=== PATIENT | female | born 1940 | race Caucasian/White ===

== ENCOUNTER 2017-08-15 14:00 | Observation (INO) | payer MEDICAID, OTHER ==
[2017-08-15 14:54] LABS: #Lymphocytes 0.7 thou/uL (1.20-3.40); #Monocytes 0.9 thou/uL (0.11-0.59); #Neutrophils 12.9 thou/uL (1.40-6.50); %Basophils 0.2 % (0.0-1.0); %Eosinophils 0.3 % (0.0-10.0); %Monocytes 5.8 % (0.0-10.0); Hematocrit 36.8 % (36.0-47.0); Mean Platelet Volume 8.7 fL (7.4-10.4); Red Blood Cell (RBC) Count 3.87 mill/uL (4.20-5.40); White Blood Cell (WBC) Count 14.6 thou/uL (4.8-10.8)
[2017-08-15 15:10] LABS: Lactic Acid - Sepsis 1.3 mmol/L (0.5-2.2)
[2017-08-15 15:15] LABS: ALT (SGPT) 7 U/L (8-55); AST (SGOT) 20 U/L (5-34); Alkaline Phosphatase 91 U/L (40-150); Anion Gap 16 mmol/L (10-20); BUN (Urea Nitrogen) 49 mg/dL (9.8-20.1); Bilirubin, Total 0.4 mg/dL (0.2-1.2); CK (CPK) 72 U/L (29-168); Calc. Creatinine Clearance 0 mL/min (70-130); Calcium 8.9 mg/dL (7.8-10.44); Carbon Dioxide 22 mmol/L (23-31); Chloride 110 mmol/L (98-107); Estimated GFR-MDRD 26; Globulin 2.9 g/dL (2.4-3.5); Lipase 30 U/L (8-78); Protein, Total 6.5 g/dL (6.0-8.3)
[2017-08-15 15:19] LABS: Troponin I Less than 0.010 ng/mL (< 0.028)
[2017-08-15 15:40] LABS: Bilirubin Small (Negative); Blood, Urine Negative (Negative); Glucose, Urine (Dipstick) Negative (Negative); Ketone, Urine Trace mg/dL (Negative); Nitrite Negative (Negative); Protein, Urine (Dipstick) Trace mg/dL (Neg-Trace)
[2017-08-15 15:43] LABS: Bacteria/HPF 1+ HPF (None Seen); Hyaline Casts/LPF 7-10 HYALINE CAST LPF (0-3 Hyaline); RBC/HPF 0-3 HPF (0-3); Squamous Epithelial None Seen HPF (0-3); WBC/HPF 21-50 HPF (0-3)
[2017-08-15] MEDS ORDERED: metroNIDAZOLE 500 MG/100 ML BAG ONE (15:53)
--- NOTE | 2017-08-15 16:07 | CT ---
ABDOMEN AND PELVIC CT SCAN WITHOUT IV CONTRAST 08/15/17 HISTORY: 77-year-old female with abdominal pain and projectile vomiting as well as diarrhea. Mild linear and parenchymal changes in the lung bases. The patient is rotated considerably. Status post cholecystect jeffery. The pancreas, spleen, adrenal glands, are unremarkable. No renal calculi or acute obstructio n. There is some fluid with a minimally distended right colon as well as sigmoid and rectum. It is d ifficult to evaluate wall thickness of the sigmoid and rectum which could potentially be thick becau se it appears to be filled with fluid. There is minimal ascites in the pelvis. No evidence for bowel obstruction. IMPRESSION: Some nonspecific fluid primarily in the right colon and also in the rectosigmoid region which certai nly could be compatible with patient's history of diarrhea. Some potential rectosigmoid colon wall t hickening cannot be excluded because of the fluid filled rectosigmoid. Minimal ascites in the pelvis . Status post cholecystectomy. No other significant acute process. POS: [facility]
[2017-08-15] MEDS ORDERED: Loperamide HCl 2 MG CAP PO PRN (18:46)
[2017-08-15] MEDS ORDERED: Ondansetron HCl/PF 4 MG/2 ML Vial IVP PRN (18:46)
[2017-08-15] MEDS ORDERED: Ondansetron ODT 4 MG TAB PO PRN (18:46)
[2017-08-15] MEDS ORDERED: Acetaminophen 500 MG TAB PO PRN (18:46)
[2017-08-15 19:49] VITALS: BMI 27.8
[2017-08-15] MEDS: Sodium Chloride 0.9% 1,000 ML IV SCH (19:53)
[2017-08-15] MEDS: Famotidine 20 MG TAB PO SCH (19:55)
[2017-08-15] MEDS ORDERED: metroNIDAZOLE 250 MG in Admixture Fee 2 EACH IVPB SCH (20:00)
--- NOTE | 2017-08-15 20:05 | HP ---
DATE OF ADMISSION: 08/15/2017 PRIMARY CARE PROVIDER: Antonia Chen D.O. CHIEF COMPLAINT: Nausea, vomiting, diarrhea. HISTORY OF PRESENT ILLNESS: This is a 77-year-old female who presents to [facility] in transfer from [facility] with complaints of nause a, vomiting, and diarrhea which apparently began in the last 24 hours. The patient states she has s everal members at [facility] who have similar symptoms. The patient apparently was noted by [facility] home personnel with a low blood pressure, prompting EMS evaluation. The patient apparently wa s hypotensive, placed on intravenous fluids and given 1 liter bolus en route to the emergency room. By the time patient was evaluated in the emergency room, blood pressure had stabilized with initial readings in the 113/68 level. The patient was initially evaluated with CT imaging of the abdomen a nd pelvis showing mild colonic wall thickening in the rectosigmoid region and treated with IV ciprof loxacin and Flagyl. The patient states she has symptomatically improved with the above treatments. The patient denied any recent travel history, documented fever, melena or hematochezia. The patien t denied any recent trauma or surgical intervention. The patient denied any specific dysuria or hem aturia. PAST MEDICAL HISTORY: 1. Chronic urinary tract infections. 2. Parkinson's disease. 3. History of prior expressive aphasia, resolved. 4. Generalized muscle weakness. 5. Question of mild dementia. 6. Hypertension. PAST SURGICAL HISTORY: Reviewed and negative. CURRENT MEDICATIONS: 1. Aspirin 81 mg 1 tab p.o. daily. 2. Carbidopa/levodopa 25/100 mg 1 tab p.o. b.i.d. 3. Fluticasone 50 mcg 1 spray in each naris daily. 4. Lisinopril 20 mg 1 tab p.o. daily. 5. Loratadine 10 mg one tab p.o. daily. 6. Sertraline 25 mg p.o. at bedtime. ALLERGIES: IODINE and PENICILLIN. FAMILY HISTORY: Positive for hypertension. SOCIAL HISTORY: The patient resides at [facility] approximately two y ears. No current alcohol, tobacco or illicit drug use. Ambulates with the use of a rolling walker with standby/contact guard assist. REVIEW OF SYSTEMS: The following complete review of systems was negative, unless otherwise mentione d in the HPI or below: Constitutional: Weight loss or gain, ability to conduct usual activities. Skin: Rash, itching. E yes: Double vision, pain. ENT/Mouth: Nose bleeding, neck stiffness, pain, tenderness. Cardiovasc ular: Palpitations, dyspnea on exertion, orthopnea. Respiratory: Shortness of breath, wheezing, c ough, hemoptysis, fever or night sweats. Gastrointestinal: Poor appetite, abdominal pain, heartbur n, nausea, vomiting, constipation, or diarrhea. Genitourinary: Urgency, frequency, dysuria, noctur ia. Musculoskeletal: Pain, swelling. Neurologic/Psychiatric: Anxiety, depression. Allergy/Immun ologic: Skin rash, bleeding tendency. PHYSICAL EXAMINATION: VITAL SIGNS: Currently, blood pressure 113/68, pulse 73, respiratory rate 14, temperature 98.1 degr ees Fahrenheit, O2 saturation 95% on room air. GENERAL APPEARANCE: This is a 77-year-old female, alert and oriented x3, pleasant, in no acute distress. HEENT: Pupils are equal, round, and reactive to light and accommodation. Extraocular muscles are i ntact. No scleral icterus, no conjunctival injection. Nares patent. OP is clear. Oral mucosa dry appearing. NECK: Supple, no cervical adenopathy, no thyromegaly, no carotid bruits, no JVD appreciated. CHEST: Lungs are clear to auscultation bilaterally. CARDIOVASCULAR: S1, S2, without noted murmur. ABDOMEN: Obese, soft with mild tenderness to palpation in the left upper quadrant. No palpable mas s. No rebound or guarding noted. EXTREMITIES: Warm and dry with fair turgor. Mild edema to the mid shins bilaterally. Pulses palpa ble distally at the dorsalis pedis, posterior tibial, and popliteal arteries bilaterally. Capillary refill less than 2 seconds. NEUROLOGIC: Cranial nerves II-XII are grossly intact. Left upper extremity weakness noted. The pa tient not observed ambulatory during this exam. PERTINENT LABORATORY AND X-RAY FINDINGS: Sodium 143, potassium 4.8, chloride 110, CO2 of 22, BUN 49 , creatinine 1.88 with estimated GFR of 26, glucose 117, lactic acid level 1.3, calcium 8.9, AST 20, ALT of 7, alkaline phosphatase 91. Total CK of 72, troponin I negative x1. Albumin 3.6, lipase 30 . CBC showed a white blood cell count of 14.6, hemoglobin 12, hematocrit 37, platelet count of 136 with 89% neutrophils. Urinalysis showed trace ketones, small bilirubin, moderate leukocyte esterase , 21-50 WBCs per high power field. CT of the abdomen and pelvis dated 08/15/2017 showed nonspecific colonic wall thickening of the rectosigmoid region. EKG dated 08/15/2017 by my interpretation show s sinus mechanism with heart rates in the 70s. Normal R-wave progression noted in the precordial le ads. Normal axis. No acute ST-T wave changes appreciated. ASSESSMENT AND PLAN: 1. Gastroenteritis. Patient will be placed in observation status on the medical floor. We will co ntinue ciprofloxacin 200 mg IV q.12 h. with additional Flagyl 250 mg IV q.8 h. We will check stool s tudies to rule out bacterial infectious process. Continue intravenous normal saline 100 mL per hour . 2. Nausea and vomiting. Suspect secondary to #1. We will continue antiemetics with Zofran 4 mg IV q.6 h. p.r.n. Continue IV antibiotic therapy as outlined previously. Intravenous normal saline at 100 mL per hour. 3. Acute kidney injury on chronic kidney disease stage II. We will continue intravenous fluids as outlined previously. Avoid nephrotoxic agents and contrast media. Repeat creatinine in the a.m. H old lisinopril. 4. Question of hypotension. Continue IV fluids as outlined previously. Hold antihypertensive doreen men. Serial blood pressure monitoring. 5. Leukocytosis with neutrophilia. We will repeat CBC in the a.m. Continue treatment as outlined in #1. 6. Question of urinary tract infection. Await final urine culture results. Continue ciprofloxacin as outlined in #1. 7. Prophylaxis. Sequential compression devices while in bed. Pepcid 20 mg p.o. b.i.d. PT evaluat ion for functional assessment. 8. Code status is FULL. Surrogate medical decision maker is patient's son.
[2017-08-15] MEDS ORDERED: Ciprofloxacin Lactate/D5W 200 MG in Premix Bag 1 BAG IVPB SCH (21:00)
[2017-08-15] MEDS: metroNIDAZOLE 250 MG in Admixture Fee 2 EACH IVPB SCH (23:44)
[2017-08-16] MEDS: Ciprofloxacin Lactate/D5W 200 MG in Premix Bag 1 BAG IVPB SCH ×2 (05:33→17:30)
[2017-08-16 06:25] LABS: Band 2 % (5-11); Hematocrit 27.8 % (36.0-47.0); Mean Platelet Volume 8.5 fL (7.4-10.4); Neutrophil 67 % (42-75); Red Blood Cell (RBC) Count 2.93 mill/uL (4.20-5.40)
[2017-08-16 06:36] LABS: ALT (SGPT) 9 U/L (8-55); AST (SGOT) 17 U/L (5-34); Alkaline Phosphatase 73 U/L (40-150); Anion Gap 13 mmol/L (10-20); BUN (Urea Nitrogen) 42 mg/dL (9.8-20.1); Bilirubin, Total 0.3 mg/dL (0.2-1.2); Calc. Creatinine Clearance 42 mL/min (70-130); Calcium 8.3 mg/dL (7.8-10.44); Carbon Dioxide 21 mmol/L (23-31); Chloride 114 mmol/L (98-107); Estimated GFR-MDRD 36; Globulin 2.4 g/dL (2.4-3.5); Protein, Total 5.4 g/dL (6.0-8.3)
[2017-08-16] MEDS: Sodium Chloride 0.9% 1,000 ML IV SCH ×2 (08:11→15:46)
[2017-08-16] MEDS: metroNIDAZOLE 250 MG in Admixture Fee 2 EACH IVPB SCH ×2 (08:12→15:46)
[2017-08-16] MEDS: Famotidine 20 MG TAB PO SCH ×2 (08:13→21:19)
[2017-08-16] MEDS ORDERED: Carbidopa/Levodopa CR 50-200 mg Tablet PO SCH (09:00)
[2017-08-16] MEDS ORDERED: Bisacodyl 5 MG TAB PO PRN (09:13)
[2017-08-16] MEDS ORDERED: Loperamide HCl 2 MG CAP PO PRN (09:13)
[2017-08-16] MEDS ORDERED: Fluticasone Propionate Nasal Spray 16 gm Bottle NASAL PRN (09:13)
--- NOTE | 2017-08-16 12:44 | PDOC.PN ---
- Subjective Encounter Start Date: 08/16/17 Encounter Start Time: 08:30 -: old records requested/rev Patient seen and examined. No new complaints. No overnight events, pt is feeling better, no diarrhoea - Objective Resuscitation Status: Resuscitation Status FULL:Full Resuscitation MAR Reviewed: Yes Vital Signs & Weight: Vital Signs (12 hours) Temp Pulse Resp BP BP Pulse Ox 08/16/17 12:27 98.1 F 74 18 136/74 97 08/16/17 08:00 97.9 F 72 18 08/16/17 07:53 97.9 F 72 18 134/79 95 08/16/17 04:20 98.1 F 71 16 127/78 94 L Weight Weight 182 lb 9.6 oz I&O: 08/15/17 08/16/17 08/17/17 06:59 06:59 06:59 Intake Total 1630 Balance 1630 Result Diagrams: 08/16/17 05:20 08/16/17 05:20 Phys Exam - Physical Examination Constitutional: NAD HEENT: PERRLA, moist MMs, sclera anicteric Neck: no JVD, supple Respiratory: no wheezing, no rales, no rhonchi Cardiovascular: RRR, no significant murmur, no rub Gastrointestinal: soft, non-tender, no distention, positive bowel sounds Musculoskeletal: no edema, pulses present Neurological: non-focal, normal sensation, moves all 4 limbs Psychiatric: normal affect Skin: no rash, normal turgor Dx/Plan (1) Acute renal failure superimposed on stage 2 chronic kidney disease Code(s): N17.9 - ACUTE KIDNEY FAILURE, UNSPECIFIED; N18.2 - CHRONIC KIDNEY DISEASE, STAGE 2 (MILD) Status: Acute (2) Gastroenteritis Code(s): K52.9 - NONINFECTIVE GASTROENTERITIS AND COLITIS, UNSPECIFIED Status : Acute (3) UTI (urinary tract infection) Status: Acute (4) Anxiety and depression Code(s): F41.8 - OTHER SPECIFIED ANXIETY DISORDERS Status: Chronic (5) Dementia Code(s): F03.90 - UNSPECIFIED DEMENTIA WITHOUT BEHAVIORAL DISTURBANCE Status: Chronic (6) Hypertension Code(s): I10 - ESSENTIAL (PRIMARY) HYPERTENSION Status: Chronic (7) Parkinson disease Code(s): G20 - PARKINSON'S DISEASE Status: Chronic - Plan cont current plan of care, continue antibiotics * continue selected home medication. * renal function improving * continue cipro and flagyl * on discharge oral cipro and flagyl * will plan for discharge tomorrow to SN[facility] * medication reviewed as below * symptomatic treatment Review of Systems - Review of Systems ENT: negative: Ear Pain, Ear Discharge, Nose Pain, Nose Discharge, Nose Congestion, Mouth Pain, Mouth Swelling, Throat Pain, Throat Swelling, Other Respiratory: negative: Cough, Dry, Shortness of Breath, Hemoptysis, SOB with Excertion, Pleuritic Pain, Sputum, Wheezing Cardiovascular: negative: Chest Pain, Palpitations, Orthopnea, Paroxysmal Noc. Dyspnea, Edema, Light Headedness, Other Gastrointestinal: negative: Nausea, Vomiting, Abdominal Pain, Diarrhea, Constipation, Melena, Hematochezia, Other Genitourinary: negative: Dysuria, Frequency, Incontinence, Hematuria, Retention , Other Musculoskeletal: negative: Neck Pain, Shoulder Pain, Arm Pain, Back Pain, Hand Pain, Leg Pain, Foot Pain, Other - Medications/Allergies Allergies/Adverse Reactions: Allergies Allergy/AdvReac Type Severity Reaction Status Date / Time iodine Allergy Verified 08/16/17 01:51 Penicillins Allergy Verified 08/16/17 01:51 Medications: Current Medications Acetaminophen (Tylenol) 1,000 mg PO Q6H PRN PRN Reason: Headache/Fever or Mild Pain Artificial Tears (Tears Naturale) 1 drop EA EYE BID [facility] Aspirin (Ecotrin) 81 mg PO DAILY [facility] Bisacodyl (Dulcolax) 5 mg PO DAILY PRN PRN Reason: Constipation Carbidopa/Levodopa (Sinemet Cr 50/200) 0.5 tab PO BID [facility] Cholecalciferol (Vitamin D3) 1,000 units PO DAILY [facility] Famotidine (Pepcid) 20 mg PO BID [facility] Last Admin: 08/16/17 08:13 Dose: 20 mg Fluticasone Propionate (Flonase Nasal [place]) 0 gm NASAL Q12H PRN PRN Reason: Allergies Gabapentin (Neurontin) 100 mg PO TID [facility] Sodium Chloride (Normal Saline 0.9%) 1,000 mls @ 100 mls/hr IV .Q10H [facility] Last Admin: 08/16/17 08:11 Dose: 1,000 mls Ciprofloxacin/Dextrose 200 mg/ (Device) 100 mls @ 100 mls/hr IVPB 0600,1800 [facility] Last Admin: 08/16/17 05:33 Dose: 100 mls Metronidazole 250 mg/ (Miscellaneous Medication) 50 mls @ 100 mls/hr IVPB 0800, 1600,2359 [facility] Last Admin: 08/16/17 08:12 Dose: 50 mls Loperamide HCl (Imodium) 2 mg PO PRN PRN PRN Reason: Diarrhea/Loose Stools Loperamide HCl (Imodium) 2 mg PO Q4H PRN PRN Reason: Diarrhea/Loose Stools Memantine (Namenda) 10 mg PO BID [facility] Multivitamins (Theragran) 1 tab PO DAILY [facility] Non-Formulary Medication (Rivastigmine [Exelon]) 1 patch TD DAILY [facility] Ondansetron HCl (Zofran Odt) 4 mg PO Q6H PRN PRN Reason: Nausea/Vomiting Ondansetron HCl (Zofran) 4 mg IVP Q6H PRN PRN Reason: Nausea/Vomiting Promethazine HCl (Phenergan) 25 mg PO Q8H PRN PRN Reason: Nausea/Vomiting Psyllium Hydrophilic Mucilloid (Metamucil) 1 pk PO DAILY [facility] Sertraline HCl (Zoloft) 25 mg PO HS DEBORAH
[2017-08-16] MEDS: Gabapentin 100 MG CAP PO SCH ×2 (15:46→21:19)
[2017-08-16] MEDS: Carbidopa/Levodopa CR 50-200 mg Tablet PO SCH (21:00)
[2017-08-16] MEDS: Artificial Tears 18 DROP/0.9 ML EA EYE SCH (21:42)
[2017-08-17] MEDS: metroNIDAZOLE 250 MG in Admixture Fee 2 EACH IVPB SCH ×3 (00:06→10:38)
[2017-08-17] MEDS: Sodium Chloride 0.9% 1,000 ML IV SCH ×3 (02:17→10:21)
[2017-08-17] MEDS: Ciprofloxacin Lactate/D5W 200 MG in Premix Bag 1 BAG IVPB SCH (05:25)
[2017-08-17 07:45] VITALS: TEMP 97.6
[2017-08-17] MEDS: Carbidopa/Levodopa CR 50-200 mg Tablet PO SCH (07:49)
[2017-08-17] MEDS: Famotidine 20 MG TAB PO SCH (07:49)
[2017-08-17] MEDS: Gabapentin 100 MG CAP PO SCH (07:49)
[2017-08-17] MEDS ORDERED: Aspirin 81 mg Enteric Coated Tablet PO SCH (09:00)
[2017-08-17] MEDS ORDERED: RIVASTIGMINE TD SCH (09:00)
[2017-08-17] MEDS ORDERED: Multivit, Therapeutic 1 TAB PO SCH (09:00)
[2017-08-17] MEDS: Artificial Tears 18 DROP/0.9 ML EA EYE SCH (10:20)
--- NOTE | 2017-08-17 11:42 | DIS ---
PRIMARY CARE PHYSICIAN: Dr. Юлия Madrigal DATE OF ADMISSION: 08/15/2017 DATE OF DISCHARGE: 08/17/2017 DISCHARGE DISPOSITION: [facility] home. PRIMARY DISCHARGE DIAGNOSES: 1. Acute on chronic kidney failure, baseline chronic kidney disease stage 2. 2. Gastroenteritis. 3. Urinary tract infection. SECONDARY DISCHARGE DIAGNOSES: Anxiety and depression, dementia, hypertension, Parkinson's disease, physical deconditioning. PRIMARY PROCEDURE/OPERATION: None. RADIOLOGICAL INVESTIGATION: Abdomen and pelvis CT scan showed nonspecific colitis. SIGNIFICANT LABS: WBC 7.0, hemoglobin 8.9, platelets 104, Sodium 144, potassium 4.2, BUN 44, creati nine 1.42, glucose 75, calcium 8.3. LFTs normal. Cardiac enzymes negative. Urinalysis suggestive of UTI. Urine culture grew E. coli. DISCHARGE MEDICATIONS: Tylenol 650 mg q.4 hours p.r.n., aspirin 81 mg p.o. daily, Dulcolax 5 mg p.o . daily, carbidopa/levodopa 25/100 one tablet b.i.d., vitamin D3 1000 units p.o. daily, Cipro 250 m g p.o. b.i.d. for 7 days, Colace 100 mg p.o. daily p.r.n., Flonase nasal spray daily, gabapentin 100 mg p.o. t.i.d., lisinopril 20 mg p.o. daily, Imodium p.r.n., Claritin 10 mg p.o. daily, Mobic 15 mg p.o. daily, Namenda 10 mg p.o. b.i.d., multivitamin 1 tablet p.o. daily, Phenergan 25 mg p.o. q.8h. p.r.n., Metamucil 1 packet daily, Exelon patch every day, Zoloft 25 mg p.o. at bedtime, Flagyl 250 mg p.o. t.i.d. for 7 days. CONTRAINDICATIONS: None. CODE STATUS: FULL CODE. INPATIENT CONSULTANTS: None. ALLERGIES: IODINE, PENICILLIN. DISCHARGE PLAN: Post hospital, the patient will follow up with primary care physician at [facility]. HOSPITAL COURSE: A 77-year-old female with above-mentioned medical problem who was admitted by Dr. Luong. Please see his H\T\P for further details. The patient lives at care home where she was benoit ving nausea, vomiting, diarrhea. She was admitted for gastroenteritis. Her urinalysis was also con sistent with urinary tract infection. In the emergency room, this patient was hypotensive. The pat ient was given IV fluid and her blood pressure improved. The patient was treated for acute on chron ic kidney failure with IV fluid and her renal function improved to baseline. The patient had a urin e culture done on an outpatient basis and based on culture result as well as given history of gastro enteritis at this time, we changed to oral Cipro and Flagyl for another 7 days. The patient's renal function is improved. The patient is tolerating p.o. well. She does not have a ny symptoms associated with nausea, vomiting or diarrhea. She denies any abdominal pain. The patient will continue above-mentioned medications after discharge. The patient is seen and examined at bedside today. VITAL SIGNS: Currently, temperature 97.6, pulse 68, respiratory rate 16, saturation 97%, blood pres sure 165/82, weight 184 pounds. GENERAL: The patient is currently alert, awake, no acute distress. HEAD: Normocephalic, atraumatic. LUNGS: Clear to auscultation without any rhonchi or rales. CARDIAC: S1, S2 regular without any murmur. ABDOMEN: Soft and benign. EXTREMITIES: No edema. NEUROLOGIC: Nonfocal examination. The patient is medically stable for discharge today.
[2017-08-17 11:46] VITALS: BP 127/77
== END 2017-08-17 12:03 ==
LOC: ERS 14:00 → T4-B 16:07
PROVIDERS: ADMIT Family Medicine; ATTEND Family Medicine
DX: R11.2 Nausea with vomiting, unspecified (principal); I12.9 Hypertensive chronic kidney disease with stage 1 through stage 4 chronic kidney disease, or unspecified chronic kidney disease; N18.2 Chronic kidney disease, stage 2 (mild); N17.9 Acute kidney failure, unspecified; K52.9 Noninfective gastroenteritis and colitis, unspecified; N39.0 Urinary tract infection, site not specified; F41.8 Other specified anxiety disorders; G20 Parkinson's disease; R53.81 Other malaise; D70.9 Neutropenia, unspecified; F03.90 Unspecified dementia, unspecified severity, without behavioral disturbance, psychotic disturbance, mood disturbance, and anxiety; Z79.1 Long term (current) use of non-steroidal anti-inflammatories (NSAID); Z79.51 Long term (current) use of inhaled steroids; Z79.82 Long term (current) use of aspirin; Z79.899 Other long term (current) drug therapy; Z88.0 Allergy status to penicillin; Z91.041 Radiographic dye allergy status
CPT/HCPCS: 36415; 36416; 51701; 74176; 80053; 81003; 81015; 82550; 82553; 83605; 83690; 84484; 85007; 85025; 85027; 86850; 86900; 86901; 93005; 96361; 96365; 96366; 96367; A4353; G0378; J0744

== ENCOUNTER 2018-09-01 09:09 | Inpatient (IN) | payer MEDICARE, OTHER, MEDICAID ==
[2018-09-01 10:04] LABS: Hemoglobin 9.2 g/dL (12.0-16.0); Mean Corpuscular HGB CONC 31.8 g/dL (32.0-36.0); Mean Corpuscular Hemoglobin 29.9 pg (27.0-31.0); Mean Corpuscular Volume 93.9 fL (78.0-98.0); RBC Distribution Width 12.9 % (11.5-14.5); Red Blood Cell (RBC) Count 3.08 mill/uL (4.20-5.40); White Blood Cell (WBC) Count 10.8 thou/uL (4.8-10.8)
[2018-09-01 10:30] LABS: Band 39 % (5-11); Lymphocytes 3 % (21-51); MDiff Complete? YES; Mean Platelet Volume 9.3 fL (7.4-10.4); Metamyelocyte 3 % (0-0); Monocytes 7 % (0-10); Neutrophil 48 % (42-75); PLT Morphology Comment Appears Decreased; Platelet Count 104 thou/uL (130-400); Polychromasia SLIGHT = 2-3 cells (100X) (0-2/hpf)
[2018-09-01 10:31] LABS: ALT (SGPT) 10 U/L (8-55); AST (SGOT) 77 U/L (5-34); Albumin 3.1 g/dL (3.4-4.8); Alkaline Phosphatase 75 U/L (40-150); Anion Gap 16 mmol/L (10-20); BUN (Urea Nitrogen) 84 mg/dL (9.8-20.1); Bilirubin, Total 0.6 mg/dL (0.2-1.2); Calc. Creatinine Clearance 0 mL/min (70-130); Calcium 7.9 mg/dL (7.8-10.44); Carbon Dioxide 16 mmol/L (23-31); Chloride 114 mmol/L (98-107); Estimated GFR-MDRD 10; Globulin 2.4 g/dL (2.4-3.5); Glucose 100 mg/dL (83-110); Lipase 10 U/L (8-78); Potassium 4.9 mmol/L (3.5-5.1); Protein, Total 5.5 g/dL (6.0-8.3); Sodium 141 mmol/L (136-145)
[2018-09-01 10:32] LABS: Bilirubin Moderate (Negative); Blood, Urine Negative (Negative); Clarity CLOUDY (Clear); Glucose, Urine (Dipstick) Negative (Negative); Leukocyte Small (Negative); Nitrite Negative (Negative); Protein, Urine (Dipstick) Trace mg/dL (Neg-Trace)
[2018-09-01 10:34] LABS: Troponin I 0.169 ng/mL (< 0.028)
[2018-09-01 10:35] LABS: Bicarbonate (HCO3v) 17.6 mmol/L (1.0-85.0); Calcium, Ionized 1.19 mmol/L (1.12-1.32); Hemoglobin - Calc 10.7 g/dL (12.0-18.0); Lactate 2.46 mmol/L (0.50-2.20); O2 Tension (PvO2) 28.1 mmHg (35.0-45.0); Potassium 5.1 mmol/L (3.4-4.7); T. Carbon Dioxide 18.8 mmol/L (1.0-85.0); pH (Venous) 7.251 (7.35-7.45); vO2 Saturation-calc 43.7 % (94-98)
--- NOTE | 2018-09-01 10:35 | RAD ---
CHEST 1 VIEW: HISTORY: An 78-year-old female with a history of sepsis. COMPARISON: 04/12/2018. FINDINGS: Monitor leads overlie the chest. Heart size is within normal limits. Mild increased markings bilate rally with some minimal chronic-appearing linear changes. IMPRESSION: Mild increased markings and minimal chronic-appearing linear changes, stable from prior 04/12/2018. No confluent pneumonia, overt edema, or pleural effusion. No evidence for pneumonia. POS: [facility]
[2018-09-01 10:36] LABS: Bacteria/HPF None Seen HPF (None Seen); Hyaline Casts/LPF 7-10 HYALINE CAST LPF (0-3 Hyaline); Pathc Cast-AUWi Flag 1.45 (0-2.49); Squamous Epithelial 0-3 HPF (0-3)
--- NOTE | 2018-09-01 10:41 | CT ---
CT OF HEAD NONCOTNRAST: INDICATION: Altered mental status. FINDINGS: There is mild to moderate global atrophy with compensatory dilatation of the ventricular system. Mil d chronic ischemic disease is present. There is no acute intracranial hemorrhage or mass effect or m idline shift. Chronic lacunar infarction in the left cerebellar hemisphere is present. IMPRESSION: No acute intracranial abnormalities. POS: [facility]
[2018-09-01 10:49] LABS: CKMB 44.9 ng/mL (0-6.6)
[2018-09-01] MEDS ORDERED: Norepinephrine 8 MG/0.9% NS 250 ML ONE (11:11)
--- NOTE | 2018-09-01 11:49 | RAD ---
FRONTRAL VIEW CHEST: Comparison: Earlier same day. Indication: Central line placement evaluation. FINDINGS: The right internal jugular venous catheter is present with tip overlying the right atrium. No evidenc e of a significant post procedure pneumothorax. Lungs are hyperinflated with bilateral interstitial p rominence. Chest is otherwise similar. IMPRESSION: Placement of a right internal jugular venous catheter with tip overlying the right atrium. No signifi cant, post procedure, pneumothorax is seen. POS: [facility]
[2018-09-01] MEDS ORDERED: MEROPENEM 1 GM/50 ML 1 GM in Premix Bag 1 BAG IVPB SCH ×2 (12:00→17:00)
[2018-09-01] MEDS ORDERED: SYSTANE 3.5 GM TUBE EA EYE PRN (12:51)
[2018-09-01] MEDS ORDERED: Norepinephrine 8 MG/0.9% NS 250 ML IVPB PRN (12:51)
[2018-09-01] MEDS ORDERED: CCU Electrolyte Replacement 1 EACH IVPB ONE (12:51)
[2018-09-01] MEDS ORDERED: Acetaminophen 325 MG Suppository PR PRN (12:51)
[2018-09-01 13:15] LABS: Actual Bicarbonate (HCO3a) 16.3 mEq/L (22-28); Base Excess (BEa) -9.1 mEq/L (-2.0 to +3.0); CO2 Tension 33.8 mmHg (35.0-45.0); Calcium, Ionized 1.13 mmol/L (1.12-1.30); Carboxyhemoglobin (COHb) 0.3 gm% (0.0-3.0); Hemoglobin (Hb) 9.9 g/dL (12.0-16.0); O2 Tension (PaO2) 151.9 mmHg (> 60.0); Potassium - ABG Lab 4.78 mmol/L (3.70-5.30)
[2018-09-01 13:16] LABS: Analyzer IN Cardio ER; Puncture Site RRA
[2018-09-01] MEDS ORDERED: Potassium Phosphate 9 MMOL in Sodium Chloride 0.9% 100 ML IVPB PRN (13:41)
[2018-09-01] MEDS ORDERED: Potassium Phosphate 15 MMOL in Sodium Chloride 0.9% 250 ML 250 ML IV PRN (13:41)
[2018-09-01] MEDS ORDERED: Magnesium Oxide 400 MG TAB PO PRN ×2 (13:41)
[2018-09-01] MEDS ORDERED: Potassium Chloride 40 MEQ in Sodium Chloride 0.9% 250 ML 250 ML IVPB PRN (13:41)
[2018-09-01] MEDS ORDERED: Magnesium 2 GM/NS 0.9% 100 ML 2 GM in Premix Bag 1 BAG IVPB PRN (13:41)
[2018-09-01] MEDS ORDERED: Potassium Chloride 40 MEQ in Premix Bag 1 BAG IVPB PRN (13:41)
[2018-09-01] MEDS ORDERED: Potassium Phosphate 12 MMOL in Sodium Chloride 0.9% 250 ML 250 ML IV PRN (13:41)
[2018-09-01] MEDS ORDERED: Potassium Chloride 20 MEQ TAB PO PRN (13:41)
[2018-09-01] MEDS ORDERED: CCU ELECTROLYTE REPLACEMENT PROTOCOL FS PRN (13:41)
[2018-09-01 14:46] LABS: Lactic Acid 1.1 mmol/L (0.5-2.2)
[2018-09-01 15:47] LABS: Troponin I 0.385 ng/mL (< 0.028)
[2018-09-01 16:29] LABS: Hemoglobin 9.2 g/dL (12.0-16.0); Mean Corpuscular HGB CONC 32.8 g/dL (32.0-36.0); Mean Corpuscular Hemoglobin 30.5 pg (27.0-31.0); Mean Platelet Volume 9.6 fL (7.4-10.4); Platelet Count 91 thou/uL (130-400); RBC Distribution Width 12.9 % (11.5-14.5); Red Blood Cell (RBC) Count 3.01 mill/uL (4.20-5.40); White Blood Cell (WBC) Count 12.1 thou/uL (4.8-10.8)
[2018-09-01 16:43] LABS: Band 24 % (5-11); Dohle Bodies SLIGHT; Lymphocytes 2 % (21-51); MDiff Complete? YES; Metamyelocyte 8 % (0-0); Monocytes 2 % (0-10); Neutrophil 63 % (42-75); PLT Morphology Comment Appears Decreased; Polychromasia SLIGHT = 2-3 cells (100X) (0-2/hpf); Reactive Lymphocytes 1 % (0-10); Toxic Granulation SLIGHT; Vacuoles SLIGHT
[2018-09-01 16:44] LABS: Anion Gap 16 mmol/L (10-20); BUN (Urea Nitrogen) 79 mg/dL (9.8-20.1); Calc. Creatinine Clearance 0 mL/min (70-130); Calcium 7.9 mg/dL (7.8-10.44); Carbon Dioxide 17 mmol/L (23-31); Chloride 113 mmol/L (98-107); Estimated GFR-MDRD 10; Glucose 118 mg/dL (83-110); Sodium 141 mmol/L (136-145)
[2018-09-01] MEDS: Dextrose 5% in Water 1,000 ML IV SCH (17:37)
[2018-09-01 18:25] LABS: Lactic Acid 1.1 mmol/L (0.5-2.2)
[2018-09-01 18:41] LABS: Troponin I 0.494 ng/mL (< 0.028)
[2018-09-01] MEDS: Famotidine/PF 20 mg/2ml Vial SLOW IVP SCH (21:32)
[2018-09-01] MEDS: MEROPENEM 1 GM/50 ML 1 GM in Premix Bag 1 BAG IVPB SCH (21:33)
--- NOTE | 2018-09-02 00:31 | HP ---
CHIEF COMPLAINT: Altered mental status. HISTORY OF PRESENT ILLNESS: The patient is a very pleasant 78-year-old female with past medical history of Parkinson's, mild dementia, essential hypertension, depression, and congenital coronary artery anomaly, who presented to the hospital for hypertension and altered mental status. I did call the long-term at [phone], spoke with nurse who takes care of Ms. Meredith, who stated that she has been feeling unwell since yesterday. The patient apparently was very weak yesterday, she has not been eating or drinking very much yesterday and had a very large bowel movement diarrhea per nurse. When the nurse came in this morning, she appeared to be more lethargic and was found to be hypotensive. At this time, EMS was called and the patient was brought into the hospital for further evaluation. The patient currently is very drowsy and unable to answer any questions. The patient's son Harish Meredith, who is at the bedside stated that he was told that she was brought in here for altered mental status. He also stated that she was at about 6 months ago with some questionable MRSA versus Clostridium difficile infection. However, when I spoke with the nurse at her facility, she stated that the patient was checked recently for Clostridium difficile and did not have Clostridium difficile at the hospital nor did she have Clostridium difficile at the long-term facility. PAST MEDICAL HISTORY: All the records are obtained from charts. History of Parkinson's, UTIs, frequent falls, dementia, vitamin D deficiency, essential hypertension, history of constipation, depression, and allergic rhinitis. FAMILY HISTORY: The patient's son said there is no history of heart disease or cancer. SOCIAL HISTORY: She is a nonsmoker, nondrinker per charting. The patient is a DNR per a POA, son, Harish Meredith. The patient currently lives in long-term facility. Her mobility is limited with wheelchair; however, she is able to tolerate activities of daily living. PAST SURGICAL HISTORY: She has had, 1. Cholecystectomy. 2. Electronic stimulator placement. MEDICATIONS: Her medications are as of the following; 1. She is on vitamin D3 1000 units daily. 2. Sertraline 25 mg daily. 3. Namenda 10 mg p.o. b.i.d. 4. Lisinopril 20 mg daily. 5. Gabapentin 100 mg t.i.d. 6. Dulcolax 5 mg daily p.r.n. 7. Aspirin 81 mg daily. ALLERGIES: SHE IS ALLERGIC TO IODINE AND PENICILLIN, UNKNOWN CAUSE FOR THE REACTION TO PENICILLIN. REVIEW OF SYSTEMS: Unable to obtain. PHYSICAL EXAMINATION: VITAL SIGNS: The patient was afebrile at 98.8, she was little tachycardic at 110; her blood pressure was 100/60; she was 95% on 6 L. GENERAL: She is snoring, minimal response on sternal rub. She just flinches, she does not upon her eyes; however, I was told previously that she was talking. CV: S1 and S2 present. No murmurs, rubs, or gallops. She appears to be tachycardic. LUNGS: Mild crackles to bilateral lower bases. ABDOMEN: Bowel sounds are present x2. She did flinch a little bit when I pushed on her abdomen below the belly button. EXTREMITIES: No edema. Pedal pulses present x2. NEUROLOGIC: Neuro check unable to do at this time since the patient is very altered and is very obtunded. SKIN: No cuts, lesions, or bruises noted. LABORATORY DATA: Laboratory results are as of the following; her WBCs are 10.8, hemoglobin of 9.2, hematocrit of 28.9, her platelets are 104. She has bands of 39. Chemistry; sodium of 141, potassium of 4.9, bicarb of 16, BUN of 84, creatinine of 4.35, her baseline is 2. AST is mildly elevated at 77. CK and CK-MB are mildly elevated, CK of 2711. BNP was 418. Urine appears to have moderate bilirubin, small leukocyte esterase, 4 to 6 wbc's. IMAGING STUDIES: Chest x-ray, mild hilar congestion. CT of head, no acute abnormalities. ASSESSMENT AND PLAN: The patient is a very pleasant 78-year-old female, who presents to the hospital with altered mental status. 1. Septic shock. The patient currently has received 2 L of normal saline per the sepsis criteria. She is currently also on Levophed to titrate her MAP, to keep her MAPs greater than 65. The patient clinically appears to be very dehydrated. We will continue some IV hydration. I did speak with Nephrology in regard to patient's elevated creatinine and also rhabdomyolysis and acidosis, who recommended to start the patient on D5 water with 3 amps of bicarb. I did discuss with the son if needed given the fact that her creatinine is elevated with her kidney injury and the need for requiring resuscitation with fluids might cause her to possibly go into renal failure requiring dialysis. The patient's son stated that he would have to discuss this with the family and get back with me on that. However, currently I did discuss with the family, she is a do not resuscitate. We will start the patient on broad-spectrum antibiotics with meropenem. She has had diarrhea. We will also check Clostridium difficile and stool leukocyte. I will hold off on giving her anything for concerns for Clostridium difficile. We will just continue the meropenem for now. May add vancomycin. 2. Rhabdomyolysis. CK level was elevated. We will continue some gentle hydration and continue to monitor. 3. Acute kidney injury on chronic kidney disease. Again, we will continue to monitor her urine output and also Nephrology has been consulted. We will also may be doing a renal ultrasound to make sure there is no obstruction. 4. Dehydration. We will continue gentle hydration and continue to monitor. 5. Elevated troponin, EKG just indicated sinus tachycardia. This could be secondary to demand ischemia. We will continue to monitor. 6. Deep venous thrombosis prophylaxis. We will put the patient on sequential compression devices. ER has notified the critical care attending. I did do an ABG since there was a change in mentation from when I was told she was talking earlier to when I saw her she was very lethargic. Her pH was 7.30, pCO2 of 33.8, and pO2 was 151.9. Job ID: [id number]
[2018-09-02] MEDS: MEROPENEM 1 GM/50 ML 1 GM in Premix Bag 1 BAG IVPB SCH ×2 (04:05→15:21)
[2018-09-02 05:03] LABS: Anion Gap 14 mmol/L (10-20); BUN (Urea Nitrogen) 88 mg/dL (9.8-20.1); Calc. Creatinine Clearance 14 mL/min (70-130); Calcium 8.4 mg/dL (7.8-10.44); Carbon Dioxide 18 mmol/L (23-31); Chloride 113 mmol/L (98-107); Estimated GFR-MDRD 10; Glucose 99 mg/dL (83-110); Potassium 4.7 mmol/L (3.5-5.1); Sodium 140 mmol/L (136-145)
[2018-09-02] MEDS: Dextrose 5% in Water 1,000 ML IV SCH (08:04)
[2018-09-02] MEDS ORDERED: Diphenoxylate HCl/Atropine Tablet PO PRN (08:31)
--- NOTE | 2018-09-02 08:51 | CON ---
DATE OF CONSULTATION: 09/01/2018 HISTORY: Marcia Meredith is an 78-year-old female from the senior care in [place] who sees a Dr. Chen there. She has multiple medical problems. Son is at the bedside along with the nurse who states she had altered mental status today. Blood pressure was systolically 60. She was given Levophed by the EMS, started on IV fluids, and brought to the hospital, in the ER. She has been here for a prolonged period of time since 9 o'clock in the morning. I was in the ER at 4 o'clock seeing the patient, she is to go to the ICU. Apparently, her blood pressures improved with hydration and Levophed. She was answering questions with the son in the room at bedside but clearly unable to get additional history. PAST MEDICAL HISTORY: Dementia, Parkinson's disease, chronic UTI, aphasia, muscle weakness, and unknown GI problems. PAST SURGICAL HISTORY: Previous surgeries included none recently. Her last admission about a year ago was prompted by GI issues. MEDICATIONS: Her chronic medications from home include a long list of medicine: 1. Sertraline 25. 2. Exelon one patch. 3. Namenda 10 mg twice a day. 4. Imodium p.r.n. 5. Neurontin 100 mg three times a day. 6. Flonase. 7. Voltaren 100 three times a day. 8. Cipro 500 mg. ALLERGIES: PENICILLIN AND IODINE. SOCIAL HISTORY: No tobacco. No alcohol. She was in the senior care for 2 years. She feeds herself but is not able to walk for the last 2 years. is the son. PHYSICAL EXAMINATION: VITAL SIGNS: Blood pressure is noted, now is improved, 120/80, on Levophed. Pulse 80. Sats 95% on nasal O2. Respirations 18. EXTREMITIES: 2+ edema. CHEST: Decreased breath sounds without any wheezing. CARDIAC: Normal S1 and S2. No gallops. ABDOMEN: No masses. IMAGING: X-rays shows no acute infiltrates. White count 10,000. H and H 9 and 28. Platelet count is 104 which has been low for a period of time. Blood gas, PO2 of 151, PCO2 of 33, pH on supplemental oxygen. Venous blood gases were obtained. Creatinine is 4.3. BUN is 84. Troponin was markedly elevated at 0.38. CK-MB was 444. BNP was 418. Lactate was 2.6. Urine shows small leucocytosis. CT of brain was unremarkable. IMPRESSION: 1. Hypotension, volume depletion. 2. Dementia. 3. Parkinson's disease. 4. Acute on chronic renal failure, advanced age, bedridden for 4 years. I agree with hydration, pressors. Empiric antibiotics; she was started on meropenem and Levophed in the ER along with vancomycin. We will continue present treatment. We will follow. This is consultation note of 70 minutes of which 50 minutes was direct patient care. Job ID: [id number]
[2018-09-02 09:07] LABS: Troponin I 0.282 ng/mL (< 0.028)
[2018-09-02] MEDS: Sodium Chloride 0.45% 1,000 ML IV SCH ×2 (09:08→20:24)
[2018-09-02 10:03] LABS: CKMB 19.7 ng/mL (0-6.6)
[2018-09-02] MEDS: Carbidopa/Levodopa 25-100 mg Tablet PO SCH ×2 (10:11→20:24)
[2018-09-02] MEDS: Heparin 5,000 UNITS/ML VIAL SC SCH ×2 (10:11→20:24)
--- NOTE | 2018-09-02 10:21 | PRG ---
DATE OF SERVICE: 09/02/2018 SUBJECTIVE: This morning, she is much more alert, responsive. OBJECTIVE: VITAL SIGNS: She is on low-dose levophed with a blood pressure of 107/51, pulse 80, respiratory rate 18, sats 100%. GENERAL: She is awake. She is hungry. She denies any pain or discomfort. Is and Os, 785 in, 448 out. CHEST: Decreased breath sounds. No wheezing. CARDIAC: Normal S1 and S2. No gallops. IMPRESSION: 1. Hypotension, more than likely secondary to volume depletion and dehydration, possibly sepsis, though not the source at this time. 2. Relative adrenal insufficiency. 3. DNR, not to be intubated. PLAN: She is started on cortisone for her relative adrenal insufficiency. IV fluids has been given. Try and wean off levophed. She will be transferred to medical floor once levophed is off. Job ID: [id number]
--- NOTE | 2018-09-02 10:59 | PRG ---
DATE OF SERVICE: 09/02/2018 SUBJECTIVE: The patient was seen in the ICU. The patient is very lethargic, barely responding. OBJECTIVE: GENERAL: This is an elderly white female, very lethargic. VITAL SIGNS: Temperature 98.8, pulse 84, respiratory rate 21, and blood pressure 121/52. HEENT: Atraumatic, normocephalic. Oral mucosa is moist. NECK: Supple. CARDIOVASCULAR: S1, S2 heard. RESPIRATORY: Clear. GASTROINTESTINAL: Abdomen is soft. MUSCULOSKELETAL: edema. DERMATOLOGIC: No skin rash. NEUROLOGIC: Lethargic and somnolent. LABORATORY DATA: Hemoglobin is 9.2. Potassium is 4.7, bicarb is 18, BUN is 88, creatinine is 4.1. ASSESSMENT AND PLAN: 1. Acute kidney injury. Renal function seems to be slightly better. 2. Metabolic acidosis, much better. 3. Hyperkalemia, better. 4. Edema, controlled. 5. , stable. Monitor renal function closely. Avoid nephrotoxins and we will follow. Job ID: [id number]
[2018-09-02] MEDS: Hydrocortisone Sod Succ/PF 100 mg/2 ml Vial IVP SCH ×3 (11:44→23:27)
--- NOTE | 2018-09-02 13:15 | CON ---
DATE OF CONSULTATION: 09/01/2018 TYPE OF CONSULTATION: Nephrology. CONSULTING PHYSICIAN: Dr. Campbell. REASON FOR CONSULTATION: Acute kidney injury. REASON FOR ADMISSION: Altered mental status. HISTORY OF PRESENT ILLNESS: This is an 78-year-old white female with history of dementia, Parkinson's disease, who came to the hospital with altered mentation. The patient is not able to give a history. The patient was at intermediate apparently this morning and it was not able to wake her up, and was sent to the hospital. The patient's son and nephew were at the bedside, and they were not present during this episode and not able to give a good history. The patient as per family started getting confused yesterday. The patient was found to have a creatinine of 3.7. Nephrology was consulted. Potassium was 5.1 and bicarb was 9. PAST MEDICAL HISTORY: Positive for dementia, Parkinson's disease, aphasia, muscle weakness, gastroesophageal reflux disease, asthma, hypertension, vitamin D deficiency. PAST SURGICAL HISTORY: Not available. ALLERGIES: IODINE AND PENICILLIN. HOME MEDICATIONS: 1. Aspirin. 2. Bisacodyl. 3. Carbidopa-levodopa. 4. Docusate. 5. Fluticasone. 6. Lisinopril. 7. Loratadine. 8. Losartan. 9. Vitamin D3. 10. Tylenol. 11. Macrobid. 12. Namenda. 13. Meloxicam. 14. Promethazine. 15. Immodium. 16. Artificial Tears. SOCIAL HISTORY: No smoking, alcohol, or illicit drug abuse. FAMILY HISTORY: No history of any kidney disease. REVIEW OF SYSTEMS: Could not be obtained. PHYSICAL EXAMINATION: GENERAL: This is an elderly female, confused. VITAL SIGNS: Temperature 99.1, pulse 87, respiratory rate , but when I saw her, it was 132/80, on Levophed. HEENT: Atraumatic, normocephalic. NECK: Supple. CARDIOVASCULAR: S1 and S2. Heart rate and rhythm are regular. RESPIRATORY: Clear. GASTROINTESTINAL: The abdomen is distended. MUSCULOSKELETAL: No edema. DERMATOLOGIC: No skin rash. NEUROLOGIC: Not responding. LABORATORY DATA: WBC 10.8, hemoglobin is 9.2, potassium is 5.1. BUN is 84 and creatinine is 3.7. ASSESSMENT AND PLAN: 1. Acute kidney injury on chronic kidney disease, most likely from volume depletion versus sepsis. Continue supportive care. Recommend bicarb drip given the severe metabolic acidosis. 2. Edema, controlled. 3. Hypertension, stable. 4. Anemia, rule out any bleed. 5. Hyperkalemia, mild. 6. Metabolic acidosis. Recommend bicarb drip. 7. Elevated troponin. We will monitor, no acute indication for dialysis. The patient is DNR. I advised the family to have a decision on dialysis if we need to, but no need for dialysis at this point. We will continue close monitoring. Avoid nephrotoxins. Thank you for the consult. Job ID: [id number]
--- NOTE | 2018-09-02 14:41 | PDOC.PN ---
- Subjective Encounter Start Date: 09/02/18 Encounter Start Time: 14:00 Subjective: pt up in bed drowsy but arousable - Objective Resuscitation Status - Order Detail: 09/01/18 13:12 Resuscitation Status Routine Resuscitation Status: DNAR: NO Resuscitation Discussed with: with son kayleen rodríguez Vital Signs & Weight: Vital Signs (12 hours) Temp Pulse Ox 09/02/18 12:00 98.8 F 09/02/18 07:16 100 09/02/18 07:00 98.8 F 09/02/18 04:00 97.9 F Weight Admit Weight 185 lb 6.54 oz Weight 192 lb 10.944 oz Most Recent Monitor Data Heart Rate from ECG 79 NIBP 116/69 NIBP BP-Mean 84 Respiration from ECG 20 SpO2 100 I&O: 09/01/18 09/02/18 09/03/18 06:59 06:59 06:59 Intake Total 785 530 Output Total 448 180 Balance 337 350 Result Diagrams: 09/01/18 14:20 09/02/18 04:12 Additional Labs: Accuchecks 09/02/18 09/01/18 05:55 23:58 POC Glucose 97 102 Phys Exam - Physical Examination Neck: no nodes, no JVD, supple, full ROM Respiratory: no wheezing, no rales, no rhonchi, wheezing present, clear to auscultation bilateral Cardiovascular: RRR, no significant murmur, no rub, gallop, irregular Gastrointestinal: soft, non-tender, no distention, positive bowel sounds Musculoskeletal: no edema, pulses present, edema present drowsy but follows command Dx/Plan (1) Septic shock Code(s): A41.9 - SEPSIS, UNSPECIFIED ORGANISM; R65.21 - SEVERE SEPSIS WITH SEPTIC SHOCK Status: Acute (2) Acute metabolic encephalopathy Code(s): G93.41 - METABOLIC ENCEPHALOPATHY Status: Acute (3) Dehydration Code(s): E86.0 - DEHYDRATION Status: Acute (4) Acute diarrhea Code(s): R19.7 - DIARRHEA, UNSPECIFIED Status: Acute - Plan unclear etiology for her sepsis -: pt is on steroids and off levophed -: cdiff neg, elevated stool wbc, will check stool cx since she has had -: gastroenteritis in the past. will check tsh * . Review of Systems - Review of Systems Respiratory: negative: Cough, Dry, Shortness of Breath, Hemoptysis, SOB with Excertion, Pleuritic Pain, Sputum, Wheezing Cardiovascular: negative: chest pain, palpitations, orthopnea, paroxysmal nocturnal dyspnea, edema, light headedness, other Gastrointestinal: negative: Nausea, Vomiting, Abdominal Pain, Diarrhea, Constipation, Melena, Hematochezia, Other - Medications/Allergies Allergies/Adverse Reactions: Allergies Allergy/AdvReac Type Severity Reaction Status Date / Time iodine Allergy Hives Verified 09/01/18 12:29 Penicillins Allergy Hives Verified 09/01/18 12:29 Medications: Current Medications Acetaminophen (Tylenol) 650 mg NC Q6H PRN PRN Reason: Fever > 101 or Mild Pain Carbidopa/Levodopa (Sinemet 25-100) 1 tab PO BID [facility] Last Admin: 09/02/18 10:11 Dose: 1 tab Diphenoxylate HCl/Atropine (Lomotil) 1 tab PO Q6H PRN PRN Reason: Diarrhea/Loose Stools Famotidine (Pepcid) 20 mg SLOW IVP 2100 [facility] Last Admin: 09/01/18 21:32 Dose: 20 mg Heparin Sodium (Porcine) (Heparin) 5,000 units SC BID [facility] Last Admin: 09/02/18 10:11 Dose: 5,000 units Hydrocortisone Sodium Succinate (Solu-Cortef) 25 mg IVP Q6HR [facility] Last Admin: 09/02/18 11:44 Dose: 25 mg Norepinephrine Bitartrate (Levophed) 250 mls @ 0 mls/hr IVPB PRN PRN; Protocol PRN Reason: To maintain MAP > 65 Sodium Chloride (1/2 Normal Saline) 1,000 mls @ 100 mls/hr IV .Q10H [facility] Last Admin: 09/02/18 09:08 Dose: 1,000 mls Meropenem 1 gm/ Device 50 mls @ 200 mls/hr IVPB 0400,1600 DEBOR[facility] Mineral Oil/White Petrolatum (Lacri-Lube Ointment) 0 gm EA EYE PRN PRN PRN Reason: Dry Eyes
[2018-09-02] MEDS: Famotidine/PF 20 mg/2ml Vial SLOW IVP SCH (20:24)
[2018-09-03] MEDS: MEROPENEM 1 GM/50 ML 1 GM in Premix Bag 1 BAG IVPB SCH (03:28)
[2018-09-03 04:10] LABS: Anion Gap 14 mmol/L (10-20); BUN (Urea Nitrogen) 84 mg/dL (9.8-20.1); Calc. Creatinine Clearance 18 mL/min (70-130); Calcium 8.9 mg/dL (7.8-10.44); Carbon Dioxide 17 mmol/L (23-31); Chloride 112 mmol/L (98-107); Estimated GFR-MDRD 13; Glucose 108 mg/dL (83-110); Potassium 4.3 mmol/L (3.5-5.1); Sodium 139 mmol/L (136-145)
[2018-09-03] MEDS: hydrALAZINE 20 MG/ML VIAL SLOW IVP PRN ×2 (05:22→12:04)
[2018-09-03] MEDS: Hydrocortisone Sod Succ/PF 100 mg/2 ml Vial IVP SCH ×3 (05:23→20:30)
[2018-09-03] MEDS: Sodium Chloride 0.45% 1,000 ML IV SCH ×2 (08:39→14:37)
[2018-09-03] MEDS: Heparin 5,000 UNITS/ML VIAL SC SCH ×2 (08:40→20:28)
[2018-09-03] MEDS: Carbidopa/Levodopa 25-100 mg Tablet PO SCH ×2 (08:40→20:27)
[2018-09-03 09:03] LABS: Band 31 % (5-11); Eosinophils 1 % (0-10); Hemoglobin 9.4 g/dL (12.0-16.0); Lymphocytes 3 % (21-51); MDiff Complete? YES; Mean Corpuscular HGB CONC 33.3 g/dL (32.0-36.0); Mean Corpuscular Hemoglobin 30.4 pg (27.0-31.0); Mean Corpuscular Volume 91.4 fL (78.0-98.0); Mean Platelet Volume 9.4 fL (7.4-10.4); Metamyelocyte 1 % (0-0); Monocytes 2 % (0-10); Neutrophil 62 % (42-75); PLT Morphology Comment Appears Decreased; Platelet Count 88 thou/uL (130-400); RBC Distribution Width 12.5 % (11.5-14.5); Red Blood Cell (RBC) Count 3.09 mill/uL (4.20-5.40); White Blood Cell (WBC) Count 11.5 thou/uL (4.8-10.8)
[2018-09-03] MEDS: cefTRIAXone\\ROCEPHIN 1 GM in Sodium Chloride 0.9% 100 ML IVPB SCH (09:04)
--- NOTE | 2018-09-03 09:55 | PRG ---
DATE OF SERVICE: 09/03/2018 SUBJECTIVE: This morning, she is much more awake, alert, and responsive, no longer hypotensive. OBJECTIVE: VITAL SIGNS: Blood pressure 160/70, saturations 100% in room air, respiratory rate 18, and temperature 98. CHEST: Decreased breath sounds. No wheezing. CARDIAC: Normal S1 and S2. No gallops. ABDOMEN: Soft. No masses. LABORATORY DATA: Urine is growing E. coli, sensitive to the present antibiotics. Creatinine is 3.49. IMPRESSION AND PLAN: Status post hypotension. Encephalopathy much improved. Normal EF. With renal failure, most of it is prerenal. Unfortunately, she had diarrhea. De-escalate the antibiotics. She is going to be transferred out of the MICU. Pulmonary Critical Care will not follow once she leaves the ICU. She has relative adrenal insufficiency. Job ID: [id number]
--- NOTE | 2018-09-03 17:26 | PDOC.PN ---
- Subjective Encounter Start Date: 09/03/18 Encounter Start Time: 11:55 Subjective: pt up in bed awake - Objective Resuscitation Status - Order Detail: 09/01/18 13:12 Resuscitation Status Routine Resuscitation Status: DNAR: NO Resuscitation Discussed with: with son kayleen rodríguez Vital Signs & Weight: Vital Signs (12 hours) Temp Pulse Pulse Pulse BP BP BP 09/03/18 13:35 81 88 117/61 124/59 L 09/03/18 12:04 75 153/102 H 09/03/18 12:00 98.8 F 09/03/18 07:22 09/03/18 07:00 98.7 F Pulse Ox Pulse Ox Pulse Ox 09/03/18 13:35 98 96 09/03/18 12:04 09/03/18 12:00 09/03/18 07:22 100 09/03/18 07:00 Weight Admit Weight 185 lb 6.54 oz Weight 192 lb 10.944 oz Most Recent Monitor Data Heart Rate from ECG 90 NIBP 145/73 NIBP BP-Mean 97 Respiration from ECG 19 SpO2 100 I&O: 09/02/18 09/03/18 09/04/18 06:59 06:59 06:59 Intake Total 785 3130 460 Output Total 448 1760 760 Balance 337 1370 -300 Result Diagrams: 09/03/18 07:59 09/03/18 03:30 Phys Exam - Physical Examination Neck: no nodes, no JVD, supple, full ROM Respiratory: no wheezing, no rales, no rhonchi, wheezing present, clear to auscultation bilateral Cardiovascular: RRR, no significant murmur, no rub, gallop, irregular Gastrointestinal: soft, non-tender, no distention, positive bowel sounds oriented to self only Dx/Plan (1) Septic shock Code(s): A41.9 - SEPSIS, UNSPECIFIED ORGANISM; R65.21 - SEVERE SEPSIS WITH SEPTIC SHOCK Status: Acute (2) Acute metabolic encephalopathy Code(s): G93.41 - METABOLIC ENCEPHALOPATHY Status: Acute (3) Dehydration Code(s): E86.0 - DEHYDRATION Status: Acute (4) Acute diarrhea Code(s): R19.7 - DIARRHEA, UNSPECIFIED Status: Acute - Plan pt still having diarrhea wbc in stool present -: other stool studies negative, abx changed to ceftriaxone -: if her diarrhea continue may consider cipro/flagyl since she has had -: gastroenteritis in the past. Pt's blood pressure stable -: pt now is having more urine output most likely ATN * . Review of Systems - Review of Systems Cardiovascular: negative: chest pain, palpitations, orthopnea, paroxysmal nocturnal dyspnea, edema, light headedness, other Gastrointestinal: negative: Nausea, Vomiting, Abdominal Pain, Diarrhea, Constipation, Melena, Hematochezia, Other - Medications/Allergies Allergies/Adverse Reactions: Allergies Allergy/AdvReac Type Severity Reaction Status Date / Time iodine Allergy Hives Verified 09/01/18 12:29 Penicillins Allergy Hives Verified 09/01/18 12:29 Medications: Current Medications Acetaminophen (Tylenol) 650 mg SC Q6H PRN PRN Reason: Fever > 101 or Mild Pain Carbidopa/Levodopa (Sinemet 25-100) 1 tab PO BID [facility] Last Admin: 09/03/18 08:40 Dose: 1 tab Diphenoxylate HCl/Atropine (Lomotil) 1 tab PO Q6H PRN PRN Reason: Diarrhea/Loose Stools Famotidine (Pepcid) 20 mg SLOW IVP 2100 [facility] Last Admin: 09/02/18 20:24 Dose: 20 mg Heparin Sodium (Porcine) (Heparin) 5,000 units SC BID [facility] Last Admin: 09/03/18 08:40 Dose: 5,000 units Hydralazine HCl (Apresoline) 10 mg SLOW IVP Q4H PRN PRN Reason: SBP > 180 Last Admin: 09/03/18 12:04 Dose: 10 mg Hydrocortisone Sodium Succinate (Solu-Cortef) 25 mg IVP BID [facility] Last Admin: 09/03/18 09:08 Dose: 25 mg Sodium Chloride (1/2 Normal Saline) 1,000 mls @ 100 mls/hr IV .Q10H [facility] Last Admin: 09/03/18 14:37 Dose: 1,000 mls Ceftriaxone Sodium 1 gm/ (Sodium Chloride) 100 mls @ 200 mls/hr IVPB 0900 [facility] Last Admin: 09/03/18 09:04 Dose: 100 mls Mineral Oil/White Petrolatum (Lacri-Lube Ointment) 0 gm EA EYE PRN PRN PRN Reason: Dry Eyes
[2018-09-03] MEDS: Gabapentin 100 MG CAP PO SCH (20:26)
[2018-09-03] MEDS: Famotidine 20 MG TAB PO SCH (20:26)
[2018-09-03] MEDS ORDERED: Famotidine 20 MG TAB PO SCH (21:00)
[2018-09-04] MEDS: Sodium Chloride 0.45% 1,000 ML IV SCH ×5 (00:20→18:20)
[2018-09-04 05:19] LABS: Anion Gap 12 mmol/L (10-20); BUN (Urea Nitrogen) 80 mg/dL (9.8-20.1); Calc. Creatinine Clearance 23 mL/min (70-130); Calcium 8.2 mg/dL (7.8-10.44); Carbon Dioxide 17 mmol/L (23-31); Chloride 114 mmol/L (98-107); Estimated GFR-MDRD 17; Glucose 94 mg/dL (83-110); Potassium 3.7 mmol/L (3.5-5.1); Sodium 139 mmol/L (136-145)
[2018-09-04] MEDS: Heparin 5,000 UNITS/ML VIAL SC SCH ×2 (08:16→21:05)
[2018-09-04] MEDS: Carbidopa/Levodopa 25-100 mg Tablet PO SCH ×4 (08:17→21:10)
[2018-09-04] MEDS: Gabapentin 100 MG CAP PO SCH (08:17)
[2018-09-04] MEDS: cefTRIAXone\\ROCEPHIN 1 GM in Sodium Chloride 0.9% 100 ML IVPB SCH (08:19)
[2018-09-04] MEDS: Hydrocortisone Sod Succ/PF 100 mg/2 ml Vial IVP SCH ×2 (08:20→21:05)
[2018-09-04] MEDS ORDERED: RIVASTIGMINE 13.3 MG/24 HR TD SCH (09:00)
--- NOTE | 2018-09-04 09:31 | PRG ---
DATE OF SERVICE: 09/04/2018 SUBJECTIVE: The patient is seen and examined at the bedside. Apparently, her consciousness significantly decreased overnight and she is quite comatose this morning during my visit. OBJECTIVE: VITAL SIGNS: Blood pressure is 139/67, temperature is 98.2, pulse is 74, respiratory rate is 20, O2 saturation is 95% on room air. GENERAL: She is comatose. She is difficult to arouse. She responds to painful stimuli. She does not follow my commands. LUNGS: Clear. HEART: S1 and S2 normal. No S3. No S4. No any murmur. ABDOMEN: Soft, nondistended. Bowel sounds are present. No organomegaly. EXTREMITIES: No clubbing, cyanosis, or edema. NEUROLOGIC: She is comatose. She moves her 4 extremities when she is subject to painful stimuli. LABORATORY DATA: Sodium of 139, potassium 3.6, chloride 114, CO2 17, BUN 80, creatinine 2.71. The rest of chemistry within normal limits. IMPRESSION: 1. Encephalopathy. This is most likely related to her medications. I am going to stop her gabapentin and we will keep an eye on her. She should be able to wake up later today. 2. Severe sepsis with hypotension. Although the patient is on Rocephin, we will continue that antibiotic. 3. Dehydration, improved. 4. Acute diarrhea with negative stool cultures. We will start her on probiotic and we will continue her Rocephin. 5. Renal insufficiency. Her blood pressure is improved. I am going to decrease the dose on her hydrocortisone. Job ID: [id number]
[2018-09-04] MEDS: Saccharomyces boulardii 250 MG CAP PO SCH (14:32)
[2018-09-04] MEDS: hydrALAZINE 20 MG/ML VIAL SLOW IVP PRN (18:21)
[2018-09-04] MEDS ORDERED: cloNIDine 0.1mg/24 Hour PATCH TD SCH (18:30)
--- NOTE | 2018-09-04 20:20 | EKG ---
Test Reason : Blood Pressure : / mmHG Vent. Rate : 087 BPM Atrial Rate : 087 BPM P-R Int : 156 ms QRS Dur : 076 ms QT Int : 356 ms P-R-T Axes : 015 009 054 degrees QTc Int : 428 ms Normal sinus rhythm Normal ECG Confirmed by DEVON CANO, SANDEEP ([id number]), mapping editor MARTA BUSTAMANTE ([id number]) on 09/04/2018 8:20:04 PM Referred By: Confirmed By:SANDEEP OSORIO MD
--- NOTE | 2018-09-04 20:52 | PRG ---
DATE OF SERVICE: 09/04/2018 SUBJECTIVE: Patient was seen and examined at bedside and overnight events noted. Patient denies any shortness of breath or chest pain or palpitation. No history of nausea or vomiting or diarrhea or fever or chills or cramps. OBJECTIVE: GENERAL: This is an elderly female, in mild distress. VITAL SIGNS: Temperature 98.4. Heart rate 77. Respiratory rate . Blood pressure 160/79. HEENT: Atraumatic, normocephalic. Oral mucosa is moist NECK: Supple. CARDIOVASCULAR: S1, S2 heard. Rate and rhythm regular. RESPIRATORY: Clear to auscultation. GASTROINTESTINAL: Abdomen is soft. MUSCULOSKELETAL: No tenderness. No edema. DERMATOLOGIC: No skin rash. NEUROLOGIC: Alert and awake and oriented X3. No focal neurologic deficits. Moving all the extremities. PSYCHIATRIC: Mood and affect normal. LABORATORY DATA: Potassium 3.7, BUN is 80, and creatinine is 2.7. ASSESSMENT AND PLAN: 1. Acute kidney injury, healing better. 2. Metabolic acidosis, stable. 3. . 4. Edema. 5. Hypertension, stable. 6. Altered mentation, slightly better. Job ID: [id number]
[2018-09-04] MEDS: Famotidine 20 MG TAB PO SCH ×2 (21:04→21:10)
[2018-09-05 05:55] LABS: Anion Gap 13 mmol/L (10-20); BUN (Urea Nitrogen) 73 mg/dL (9.8-20.1); Calc. Creatinine Clearance 29 mL/min (70-130); Calcium 8.3 mg/dL (7.8-10.44); Carbon Dioxide 17 mmol/L (23-31); Chloride 115 mmol/L (98-107); Estimated GFR-MDRD 22; Glucose 96 mg/dL (83-110); Potassium 3.3 mmol/L (3.5-5.1); Sodium 142 mmol/L (136-145)
[2018-09-05] MEDS: cefTRIAXone\\ROCEPHIN 1 GM in Sodium Chloride 0.9% 100 ML IVPB SCH (08:34)
[2018-09-05] MEDS: Hydrocortisone Sod Succ/PF 100 mg/2 ml Vial IVP SCH ×2 (08:34→20:55)
[2018-09-05] MEDS: Heparin 5,000 UNITS/ML VIAL SC SCH ×2 (08:36→20:53)
[2018-09-05] MEDS: Saccharomyces boulardii 250 MG CAP PO SCH (08:42)
[2018-09-05] MEDS: Carbidopa/Levodopa 25-100 mg Tablet PO SCH ×2 (08:43→21:01)
[2018-09-05] MEDS ORDERED: Potassium Chloride 20 MEQ TAB PO SCH (09:45)
[2018-09-05] MEDS ORDERED: Potassium Chloride 10 MEQ in Premix Bag 1 BAG IVPB SCH ×2 (12:00→12:45)
[2018-09-05] MEDS: Sodium Chloride 0.9% 1,000 ML IV SCH (13:10)
[2018-09-05] MEDS: Sodium Chloride 0.45% 1,000 ML IV SCH (13:15)
[2018-09-05] MEDS: Famotidine 20 MG TAB PO SCH (20:54)
[2018-09-06 05:58] LABS: Anion Gap 13 mmol/L (10-20); BUN (Urea Nitrogen) 60 mg/dL (9.8-20.1); Calc. Creatinine Clearance 33 mL/min (70-130); Calcium 8.5 mg/dL (7.8-10.44); Carbon Dioxide 18 mmol/L (23-31); Chloride 119 mmol/L (98-107); Estimated GFR-MDRD 27; Glucose 95 mg/dL (83-110); Potassium 3.5 mmol/L (3.5-5.1); Sodium 146 mmol/L (136-145)
--- NOTE | 2018-09-06 07:48 | PRG ---
DATE OF SERVICE: 09/03/2018 SUBJECTIVE: Patient was seen and examined at bedside and overnight events noted. Patient denies any shortness of breath or chest pain or palpitation. No history of nausea or vomiting or diarrhea or fever or chills or cramps. OBJECTIVE: GENERAL: This is an elderly female, in no acute distress. VITAL SIGNS: Temperature 98.8. Heart rate 89. Respiratory rate . Blood pressure 124/59 HEENT: Atraumatic, normocephalic. Oral mucosa is moist NECK: Supple. CARDIOVASCULAR: S1, S2 heard. Rate and rhythm regular. RESPIRATORY: Clear to auscultation. GASTROINTESTINAL: Abdomen is soft. MUSCULOSKELETAL: No tenderness. No edema. DERMATOLOGIC: No skin rash. NEUROLOGIC: Alert and awake and oriented X3. No focal neurologic deficits. Moving all the extremities. PSYCHIATRIC: Mood and affect normal. LABORATORY DATA: Potassium is 4.3, BUN is 84, and creatinine is 3.4. ASSESSMENT AND PLAN: 1. Acute kidney injury on chronic kidney disease stage 3 with improvement in BUN and creatinine .. 2. Metabolic acidosis. Continue hydrations. 3. Hyperkalemia, better. 4. . 5. Hypertension, stable. We will continue on IV fluids if tolerated. Job ID: [id number]
--- NOTE | 2018-09-06 07:49 | PRG ---
DATE OF SERVICE: 09/05/2018 SUBJECTIVE: Patient was seen and examined at bedside and overnight events noted. Patient denies any shortness of breath or chest pain or palpitation. No history of nausea or vomiting or diarrhea or fever or chills or cramps. OBJECTIVE: GENERAL: This is an elderly female, in no apparent distress. VITAL SIGNS: Temperature 98.6. Heart rate 81. Respiratory rate 16. Blood pressure 179/82. HEENT: Atraumatic, normocephalic. Oral mucosa is moist. NECK: Supple. CARDIOVASCULAR: S1, S2 heard. Rate and rhythm regular. RESPIRATORY: Clear to auscultation. GASTROINTESTINAL: Abdomen is soft. MUSCULOSKELETAL: No tenderness. No edema. DERMATOLOGIC: No skin rash. NEUROLOGIC: Alert and awake and oriented X3. No focal neurologic deficits. Moving all the extremities. PSYCHIATRIC: Mood and affect normal. LABORATORY DATA: Potassium is 3.3, BUN is 73, creatinine is 2.1. ASSESSMENT AND PLAN: 1. Acute kidney injury on chronic kidney disease, stage 3 improvement. Creatinine is much better. 2. Metabolic acidosis, better. 3. Edema, . 4. Hypertension. 5. Altered mentation with dementia. Renal function is getting better. Okay with reducing IV fluids to 50 cc an hour. Continue close monitoring. Job ID: [id number]
--- NOTE | 2018-09-06 07:50 | PRG ---
DATE OF SERVICE: 09/05/2018 SUBJECTIVE: The patient was seen and examined at the bedside. Her son is in the room during my visit. She is more awake this morning. She is able to answer my questions. She still feels kind of sleepy but she does not sleep during my visit like she did yesterday. OBJECTIVE: VITAL SIGNS: Blood pressure is 179/82, pulse is 81, temperature 98.6, respiratory rate is 16, O2 saturation is 95% on room air. HEENT: Head is atraumatic and normocephalic. Eyes are PERRLA. Sclerae are nonicteric. Oral mucosa is moist. NECK: Supple. LUNGS: Clear. HEART: S1, S2 normal. ABDOMEN: Soft and nontender. EXTREMITIES: No clubbing, cyanosis, or edema. NEUROLOGIC: She is able to answer my questions. She is able to move her all four extremities. LABORATORY DATA: Labs showed a sodium of 142, potassium 3.3, chloride 115, CO2 of 17, BUN of 73, creatinine 2.19. Estimated GFR is 22. Glucose is ranging from 99 to 142. IMPRESSION: 1. Encephalopathy, improved. Her gabapentin was stopped yesterday. She is more awake and able to answer my questions. 2. Severe sepsis with hypotension, improved. The patient is continued on Rocephin. She will need to be switched probably tomorrow to oral antibiotic to finish up the course. 3. Dehydration, improved. 4. Renal insufficiency, gradually improving. 5. Acute diarrhea, improved. There is no any growth on her stool cultures. She is on probiotics and we decided to continue Rocephin and later switch it to oral. Most likely, she will need [facility] unit for further management of her deconditioning, and also we are going to give her one dose of KCl 10 mEq today for her hypokalemia, and I will continue her IV fluids at 75 mL per hour, and continue PT and OT. Job ID: [id number]
[2018-09-06] MEDS: cefTRIAXone\\ROCEPHIN 1 GM in Sodium Chloride 0.9% 100 ML IVPB SCH (08:07)
[2018-09-06] MEDS: Carbidopa/Levodopa 25-100 mg Tablet PO SCH ×2 (08:07→20:11)
[2018-09-06] MEDS: Saccharomyces boulardii 250 MG CAP PO SCH (08:07)
[2018-09-06] MEDS: Hydrocortisone Sod Succ/PF 100 mg/2 ml Vial IVP SCH (08:08)
[2018-09-06] MEDS: Heparin 5,000 UNITS/ML VIAL SC SCH ×2 (08:09→20:11)
[2018-09-06] MEDS: Sodium Chloride 0.9% 1,000 ML IV SCH (08:10)
--- NOTE | 2018-09-06 10:17 | PRG ---
DATE OF SERVICE: 09/06/2018 SUBJECTIVE: This morning, awake and responsive. OBJECTIVE: VITAL SIGNS: Saturations are 98% on room air, resp 18 ,pulse 76 blood [id number] 178/77. CHEST: Decreased breath sounds. No wheezing. CARDIAC: Normal S1 and S2. No gallops or masses. LABORATORY DATA: Creatinine 1.8, BUN is 60. Lytes are normal. IMPRESSION: 1. Urinary tract infection. 2. Hypertension secondary to severe dehydration, secondary to severe diarrhea. 3. Dementia. 4. Relative adrenal insufficiency. PLAN: Pulmonary Critical Care will follow at a distance. Blood pressure is resolved, we can probably discontinue the hydrocortisone, antibiotics, switch over to oral medication, she will be transferred back to the [facility]. Job ID: [id number] [facility]
[2018-09-06] MEDS: Sodium Chloride 0.45% 1,000 ML IV SCH (12:06)
--- NOTE | 2018-09-06 12:21 | PRG ---
DATE OF SERVICE: 09/06/2018 SUBJECTIVE: Patient was seen and examined at bedside and overnight events noted. Patient denies any shortness of breath or chest pain or palpitation. No history of nausea or vomiting or diarrhea or fever or chills or cramps. OBJECTIVE: GENERAL: This is an elderly female, in no apparent distress. VITAL SIGNS: Temperature 98.5. Heart rate 80. Respiratory rate 20. Blood pressure 178/77. HEENT: Atraumatic, normocephalic. Oral mucosa is moist NECK: Supple. CARDIOVASCULAR: S1, S2 heard. Rate and rhythm regular. RESPIRATORY: Clear to auscultation. GASTROINTESTINAL: Abdomen is soft. MUSCULOSKELETAL: No tenderness. No edema. DERMATOLOGIC: No skin rash. NEUROLOGIC: Alert and awake and oriented X3. No focal neurologic deficits. Moving all the extremities. PSYCHIATRIC: Mood and affect normal. LABORATORY DATA: Potassium is 3.5, BUN is 68, and creatinine is 1.8. ASSESSMENT AND PLAN: 1. Acute kidney injury on chronic kidney disease, stage 3. Renal function is slightly better. 2. Hyperchloremia and hypernatremia. We will change to half NS. 3. Metabolic acidosis, stable. 4. Edema, controlled. 5. Altered mentation, getting better. I will continue on IV fluids as tolerated. Job ID: [id number]
[2018-09-06 14:03] VITALS: BMI 33.3
--- NOTE | 2018-09-06 16:06 | PDOC.PN ---
- Subjective Encounter Start Date: 09/06/18 Encounter Start Time: 16:04 Ms. Meredith was seen today in follow-up of Sepsis, and acute kidney injury. She is confused and can not communicate her needs. She appears comfortable. - Objective Resuscitation Status - Order Detail: 09/01/18 13:12 Resuscitation Status Routine Resuscitation Status: DNAR: NO Resuscitation Discussed with: with son kayleen meredtih MAR Reviewed: Yes Vital Signs & Weight: Vital Signs (12 hours) Temp Pulse Resp BP Pulse Ox 09/06/18 08:00 98.5 F 80 20 178/77 H 95 Weight Admit Weight 185 lb 6.54 oz Weight 188 lb 8 oz Most Recent Monitor Data Heart Rate from ECG 90 NIBP 127/70 NIBP BP-Mean 89 Respiration from ECG 16 SpO2 100 I&O: 09/05/18 09/06/18 09/07/18 06:59 06:59 06:59 Intake Total 650 Output Total 2650 700 Balance -2650 -50 Result Diagrams: 09/03/18 07:59 09/06/18 04:31 Phys Exam - Physical Examination HEENT: PERRLA Respiratory: no wheezing, no rales, no rhonchi, clear to auscultation bilateral Cardiovascular: RRR, no significant murmur, no rub Gastrointestinal: soft, non-tender, positive bowel sounds Musculoskeletal: edema present non-pitting edema of the lower extremities Dx/Plan (1) Sepsis Code(s): A41.9 - SEPSIS, UNSPECIFIED ORGANISM Status: Acute (2) Acute diarrhea Code(s): R19.7 - DIARRHEA, UNSPECIFIED Status: Acute (3) Acute metabolic encephalopathy Code(s): G93.41 - METABOLIC ENCEPHALOPATHY Status: Resolved (4) Hypertension Code(s): I10 - ESSENTIAL (PRIMARY) HYPERTENSION Status: Chronic (5) Acute kidney injury superimposed on CKD Code(s): N17.9 - ACUTE KIDNEY FAILURE, UNSPECIFIED; N18.9 - CHRONIC KIDNEY DISEASE, UNSPECIFIED Status: Acute - Plan * Patient was admitted with Sepsis and altered mental status, due to UTI , diarrhea, and acute renal failure. She has improved with treatment since admission * Sepsis- resolving- can likely transition Rocephin to an oral antibiotic * Acute Kidney injury- improved * HTN- blood pressure is uncontrolled- can consider re-start of Lisinopril tomorrow- continue PRN medications
[2018-09-06] MEDS: Famotidine 20 MG TAB PO SCH (20:11)
[2018-09-06] MEDS: hydrALAZINE 20 MG/ML VIAL SLOW IVP PRN (20:23)
[2018-09-07] MEDS: Sodium Chloride 0.45% 1,000 ML IV SCH (03:36)
[2018-09-07 04:45] LABS: Anion Gap 15 mmol/L (10-20); BUN (Urea Nitrogen) 44 mg/dL (9.8-20.1); Calc. Creatinine Clearance 43 mL/min (70-130); Calcium 8.3 mg/dL (7.8-10.44); Carbon Dioxide 16 mmol/L (23-31); Chloride 118 mmol/L (98-107); Estimated GFR-MDRD 36; Glucose 80 mg/dL (83-110); Potassium 3.4 mmol/L (3.5-5.1); Sodium 146 mmol/L (136-145)
[2018-09-07] MEDS: cefTRIAXone\\ROCEPHIN 1 GM in Sodium Chloride 0.9% 100 ML IVPB SCH (08:00)
[2018-09-07] MEDS: Saccharomyces boulardii 250 MG CAP PO SCH (08:04)
[2018-09-07] MEDS: Heparin 5,000 UNITS/ML VIAL SC SCH ×2 (08:04→08:13)
[2018-09-07] MEDS: Carbidopa/Levodopa 25-100 mg Tablet PO SCH (08:05)
--- NOTE | 2018-09-07 12:46 | PDOC.PN ---
- Subjective Encounter Start Date: 09/07/18 Encounter Start Time: 12:45 Ms. Meredith was seen today in follow-up of UTI . She is feeling better. She was more awake and alert. - Objective Resuscitation Status - Order Detail: 09/01/18 13:12 Resuscitation Status Routine Resuscitation Status: DNAR: NO Resuscitation Discussed with: with son kayleen meredith MAR Reviewed: Yes Vital Signs & Weight: Vital Signs (12 hours) Temp Pulse Resp BP Pulse Ox 09/07/18 08:00 93 L 09/07/18 07:51 97.6 F 78 20 174/79 H 93 L Weight Admit Weight 185 lb 6.54 oz Weight 190 lb 3 oz Most Recent Monitor Data Heart Rate from ECG 90 NIBP 127/70 NIBP BP-Mean 89 Respiration from ECG 16 SpO2 100 I&O: 09/06/18 09/07/18 09/08/18 06:59 06:59 06:59 Intake Total 650 Output Total 700 1000 Balance -50 -1000 Result Diagrams: 09/03/18 07:59 09/07/18 03:51 Phys Exam - Physical Examination HEENT: PERRLA Respiratory: no wheezing, no rales, no rhonchi, clear to auscultation bilateral Cardiovascular: RRR, no significant murmur, no rub Gastrointestinal: soft, non-tender, no distention, positive bowel sounds Musculoskeletal: no edema Dx/Plan (1) Sepsis Code(s): A41.9 - SEPSIS, UNSPECIFIED ORGANISM Status: Acute (2) Acute diarrhea Code(s): R19.7 - DIARRHEA, UNSPECIFIED Status: Acute (3) Acute metabolic encephalopathy Code(s): G93.41 - METABOLIC ENCEPHALOPATHY Status: Resolved (4) Hypertension Code(s): I10 - ESSENTIAL (PRIMARY) HYPERTENSION Status: Chronic (5) Acute kidney injury superimposed on CKD Code(s): N17.9 - ACUTE KIDNEY FAILURE, UNSPECIFIED; N18.9 - CHRONIC KIDNEY DISEASE, UNSPECIFIED Status: Acute - Plan * sepsis- resolved * She is more awake and alert * Her serum sodium was only slightly elevated * Stable for discharge back to [place].
--- NOTE | 2018-09-07 12:51 | PRG ---
DATE OF SERVICE: 09/07/2018 SUBJECTIVE: An 78-year-old female, being seen for acute kidney injury. The patient denies any nausea, vomiting, or chest pain. OBJECTIVE: GENERAL: The patient is awake and alert. VITAL SIGNS: Pulse 93, breathing 16, blood pressure 164/73. GENERAL APPEARANCE AND MENTAL STATUS: Fair. HEAD/NECK: Normocephalic. Atraumatic. EYES: EOMI. No deformity. EARS: Clear. No ulcers. NOSE: Intact. No lesions. MOUTH: Clear. No discharge. THROAT: Clear. No exudate. LUNGS: Clear. No crackles. CARDIAC: S1, S2. No rub. ABDOMEN: Benign. Bowel sounds positive. GENITALIA/RECTUM: Moncada absent. BACK/EXTREMITIES: Edema 0+. NEUROLOGICAL: Alert and motor intact. SKIN: LYMPHATICS: LABORATORY DATA: Hemoglobin 9.4 ASSESSMENT AND PLAN: 1. Acute kidney injury. 2. Hypertension, stable. 3. Hypernatremia, we will recommend increasing free water, medication appropriate. I would also recommend a renal imaging. Job ID: [id number]
--- NOTE | 2018-09-07 14:12 | ULT ---
RENAL ULTRASOUND: History: Acute on chronic renal failure. Comparison: None. Technique: Utilizing a multihertz transducer, sagittal and transverse imaging of the kidneys was perf ormed. FINDINGS: Bilateral renal cortical thinning. Right kidney measures 4.4 x 5.0 x 9.1 cm. Left kidney measures 4.3 x 4.3 x 10.1 cm. Bilaterally, no hydronephrosis. Urinary bladder is not seen due to Moncada catheterization. IMPRESSION: Bilateral renal cortical thinning. Bilaterally, no hydronephrosis. POS: [place]
[2018-09-07 17:08] VITALS: BP 170/82; TEMP 97.9
--- NOTE | 2018-09-08 14:07 | DIS ---
DATE OF ADMISSION: 09/01/2018 DATE OF DISCHARGE: 09/07/2018 PRIMARY CARE PHYSICIAN: Dr. Antonia Chen. DISCHARGE DISPOSITION: Home. PRIMARY DISCHARGE DIAGNOSES: 1. Metabolic encephalopathy. 2. Urinary tract infection. 3. Acute on chronic kidney injury. 4. Hypertension. 5. Parkinson disease. 6. Dementia. DISCHARGE MEDICATIONS: Include 1. Omnicef 300 mg twice a day. 2. daily. 3. Sertraline 25 mg at bedtime. 4. Exelon patch 13.3 mg q.24. 5. Multivitamin once a day. 6. Namenda 10 mg twice daily. 7. Loratadine 10 mg twice daily. 8. Imodium one capsule q.4. 9. Flonase nasal spray daily. 10. Voltaren 100 mg topical t.i.d. 11. Vitamin D3 1000 units daily. 12. Levodopa/carbidopa 100/25 twice daily. 13. Dulcolax 5 mg daily. 14. Aspirin 81 mg a day. 15. Artificial Tears once daily. 16. Tylenol p.r.n. PROCEDURES DONE DURING ADMISSION: The patient had an echocardiogram and it demonstrated an ejection fraction of 55% to 60%, grade 1/3 diastolic dysfunction and [id number] tricuspid regurgitation. The patient also had a renal ultrasound showing bilateral renal cortical thinning. There is no evidence of any hydronephrosis. CODE STATUS: DNAR. ALLERGIES: ALLERGIES ARE TO IODINE AND PENICILLIN. HOSPITAL COURSE: Ms. Meredith is a pleasant 78-year-old female, who presented to the emergency room with altered mental status. She was found to have a metabolic encephalopathy likely as a result of urinary tract infection and acute kidney injury. She also had a mild rhabdomyolysis. This all resolved with fluids as well as IV antibiotics. Renal ultrasound was done to rule out obstruction. This was negative. She was also seen by Nephrology during her hospital stay. Once she was stabilized, she was able to be transferred back to the nursing facility on 09/07/2018. Job ID: [id number]
== END 2018-09-07 18:27 | DRG 871 ==
LOC: ERS 09:09 → CCU 16:55 → T4-A 09-03 18:25
PROVIDERS: ADMIT Internal Medicine; ATTEND Internal Medicine
PROC: 3E033XZ Introduction of Vasopressor into Peripheral Vein, Percutaneous Approach (ICD-10-PCS; principal; 2018-09-01)
DX: A41.9 Sepsis, unspecified organism (principal); R65.21 Severe sepsis with septic shock; G93.41 Metabolic encephalopathy; Q24.5 Malformation of coronary vessels; M62.82 Rhabdomyolysis; N39.0 Urinary tract infection, site not specified; N17.9 Acute kidney failure, unspecified; E27.40 Unspecified adrenocortical insufficiency; G20 Parkinson's disease; F02.80 Dementia in other diseases classified elsewhere, unspecified severity, without behavioral disturbance, psychotic disturbance, mood disturbance, and anxiety; F32.9 Major depressive disorder, single episode, unspecified; E55.9 Vitamin D deficiency, unspecified; Z66 Do not resuscitate; I12.9 Hypertensive chronic kidney disease with stage 1 through stage 4 chronic kidney disease, or unspecified chronic kidney disease; E86.0 Dehydration; R74.8 Abnormal levels of other serum enzymes; R19.7 Diarrhea, unspecified; Z74.01 Bed confinement status; E87.5 Hyperkalemia; N18.3 Chronic kidney disease, stage 3 (moderate)
CPT/HCPCS: 36415; 36416; 36556; 51702; 70450; 71045; 76770; 80048; 80053; 81003; 81015; 82330; 82533; 82550; 82553; 82803; 82805; 83605; 83630; 83690; 83880; 84439; 84443; 84484; 85025; 87040; 87045; 87046; 87077; 87086; 87186; 87324; 87449; 87804; 87899; 93005; 93306; 96360; 96361; 96365; 96366; 96367; G8978-GP-CM; G8979-GP-CL; J0360; J0696; J1644; J1720; J2185; J3370; J3480; J7050; P9045; S0028

== ENCOUNTER 2020-06-01 13:55 | Inpatient (IN) | payer MEDICARE, OTHER, MEDICAID ==
[2020-06-01] MEDS ORDERED: cefTRIAXone\\ROCEPHIN 2 GM VIAL ONE (14:37)
[2020-06-01] MEDS ORDERED: Vancomycin 1 GM/200 ML BAG ONE (14:38)
[2020-06-01 16:19] LABS: Bilirubin Negative (Negative); Blood, Urine 2+ (Negative); Glucose, Urine (Dipstick) Normal (Negative); Ketone, Urine Negative (Negative); Leukocyte 500 Leu/uL (Negative); Nitrite Negative (Negative); Protein, Urine (Dipstick) 70 mg/dL (Neg-Trace); RBC/HPF Greater than 50 HPF (0-3); Specific Gravity, Urine 1.013 (1.002-1.036); Squamous Epithelial None Seen HPF (0-3); Urobilinogen Normal mg/dL (Less than 2); WBC/HPF Greater than 50 HPF (0-3); pH, Urine 5.5 (5.0-9.0)
[2020-06-01 16:20] LABS: Bacteria/HPF 3+ HPF (None Seen); Clarity Cloudy (Clear)
[2020-06-01] MEDS ORDERED: Ondansetron ODT 4 MG TAB SL PRN (18:52)
[2020-06-01] MEDS ORDERED: Ondansetron PF 4 MG/2 ML Vial IVP PRN (18:52)
[2020-06-01] MEDS ORDERED: Acetaminophen 325 MG TAB PO PRN ×2 (18:52→19:28)
[2020-06-01] MEDS ORDERED: Acetaminophen 650 MG Suppository PR PRN (19:28)
--- NOTE | 2020-06-01 21:33 | PDOC.HHP ---
Hospitalist HPI - History of Present Illness Syncope History of Present Illness: Patient is an 79-year-old woman who was brought in from the intermediate after having a syncopal episode while taking a shower. She was apparently found slumped in a chair and did not hit the groun. She had lost consciousness for about 3 minutes. Patient has no recollection of the events but does remember being brought into the hospital by ambulance. She has a known history of Alzheimer's and Parkinson's. She is typically AO x2 at baseline. She reports walking with the help of a walker. Currently patient reports having pain throughout her entire body. Denies any headaches. She is minimally communicative at baseline therefore difficult to obtain much history from her. Of note last echo was done August 2018 showing an EF of 55 to 60%. Grade 1/3 diastolic dysfunction. Mildly dilated left atrium. Mitral annular calcification present. Mild MR. Aortic valve sclerosis. Moderate to severe tricuspid regurgitation. ED COURSE: EKG done in the emergency department showed normal sinus rhythm with a heart of 72. No ST changes or T wave abnormalities. Urinalysis done was notable for 500 leukocyte, 70 protein, 2+ blood, greater than 50 white blood cells, greater than 50 red blood cells, 3+ bacteria. Patient therefore started on IV antibiotics for UTI (Levaquin). CT of the head was done and showed atrophy and chronic ischemic changes but no acute intracranial finding. Chest x-ray showed no acute findings. PAST MEDICAL HISTORY: Alzheimer's Parkinson's CKD Chronic UTI Ankylosing spondylitis Depression PAST SURGICAL HISTORY: SOCIAL HISTORY: Patient lives in a intermediate. No tobacco use alcohol consumption or illicit drug use. FAMILY HISTORY: Noncontributory. ALLERGIES: Iodine and penicillin CURRENT MEDICATIONS: Aspirin 81 mg p.o. daily Bisacodyl 5 mg p.o. daily as needed Carbidopa/levodopa, 25/100 mg 1 tablet twice daily Vitamin D3 1000 units p.o. daily Multivitamin with minerals p.o. daily Namenda 5 mg p.o. twice daily Exelon transdermal 1 patch daily, strength 13.3 mg Imodium 2 mg p.o. every 4 hours. Artificial tears Vitamin C tablet 500 mg p.o. daily Zoloft 50 mg p.o. daily Acidophilus/pectin p.o. daily Albuterol sulfate nebs every 6 hours as needed Milk of magnesia 30 mL's p.o. every 12 hours. Levothyroxine 25 mcg p.o. daily - Exam General Appearance: NAD, awake alert Eye: PERRL, anicteric sclera ENT: normocephalic atraumatic, no oropharyngeal lesions Neck: supple, no lymphadenopathy Heart: RRR, normal peripheral pulses Respiratory: CTAB, no wheezes, no rales, no ronchi, normal chest expansion Gastrointestinal: soft, non-tender, non-distended, normal bowel sounds, no guarding, no rigidity Hospitalist Results - Labs Lab results: Troponin I 0.023 ng/mL (< 0.028) 06/01/20 14:58 Urine Ketones Negative mg/dL (Negative) 06/01/20 15:30 Urine Blood 2+ (Negative) A 06/01/20 15:30 Urine Nitrite Negative (Negative) 06/01/20 15:30 Ur Leukocyte Esterase 500 [place]/uL (Negative) A 06/01/20 15:30 Urine RBC Greater than 50 HPF (0-3) A 06/01/20 15:30 Urine WBC Greater than 50 HPF (0-3) A 06/01/20 15:30 Ur Squamous Epith Cells None Seen HPF (0-3) 06/01/20 15:30 Urine Bacteria 3+ HPF (None Seen) A 06/01/20 15:30 Hospitalist H&P A/P - Problem (1) Syncope Code(s): R55 - SYNCOPE AND COLLAPSE Status: Acute (2) UTI (urinary tract infection) Status: Acute (3) Acute kidney injury superimposed on CKD Code(s): N17.9 - ACUTE KIDNEY FAILURE, UNSPECIFIED; N18.9 - CHRONIC KIDNEY DISEASE, UNSPECIFIED Status: Acute (4) Anxiety and depression Code(s): F41.8 - OTHER SPECIFIED ANXIETY DISORDERS Status: Chronic (5) Dementia Code(s): F03.90 - UNSPECIFIED DEMENTIA WITHOUT BEHAVIORAL DISTURBANCE Status: Chronic (6) Hypertension Code(s): I10 - ESSENTIAL (PRIMARY) HYPERTENSION Status: Chronic (7) Parkinson disease Code(s): G20 - PARKINSON'S DISEASE Status: Chronic - Plan Plan: Continue IV antibiotics, will give meropenem due to renal function and PCN allergy. No further levaquin. Continue gentle hydration. Await urine cultures. Monitor renal function. Monitor BP. Echo and carotid US ordered. Orthostatic BPs. Resume home medications once verified, as appropriate. PT consulted. UNKNOWN CODE STATUS/MPOA.
[2020-06-01] MEDS: Sodium Chloride 0.9% 1,000 ML IV SCH (22:32)
[2020-06-01] MEDS: hydrALAZINE 20 MG/ML VIAL SLOW IVP PRN (22:43)
[2020-06-01] MEDS ORDERED: Meropenem 500 MG in Sodium Chloride 0.9% 100 ML IVPB SCH (22:45)
[2020-06-01 23:35] VITALS: BMI 25.4
[2020-06-02 04:11] LABS: #Eosinphils 0.1 thou/uL (0.0-0.7); #Lymphocytes 1.2 thou/uL (1.20-3.40); #Monocytes 0.6 thou/uL (0.11-0.59); #Neutrophils 5.1 thou/uL (1.40-6.50); %Basophils 0.6 % (0.0-1.0); %Eosinophils 1.9 % (0.0-10.0); %Lymphocytes 16.9 % (21.0-51.0); %Neutrophils 72.6 % (42.0-75.0); Hemoglobin 9.9 g/dL (12.0-16.0); Mean Corpuscular HGB CONC 32.7 g/dL (32.0-36.0); Mean Corpuscular Hemoglobin 30.2 pg (27.0-31.0); Mean Corpuscular Volume 92.2 fL (78.0-98.0); Mean Platelet Volume 8.6 fL (7.4-10.4); Platelet Count 128 thou/uL (130-400); RBC Distribution Width 12.3 % (11.5-14.5); Red Blood Cell (RBC) Count 3.27 mill/uL (4.20-5.40); White Blood Cell (WBC) Count 7.1 thou/uL (4.8-10.8)
[2020-06-02 04:57] LABS: Anion Gap 15 mmol/L (10-20); BUN (Urea Nitrogen) 35 mg/dL (9.8-20.1); Calc. Creatinine Clearance 32 mL/min (70-130); Calcium 8.8 mg/dL (7.8-10.44); Carbon Dioxide 19 mmol/L (23-31); Chloride 112 mmol/L (98-107); Estimated GFR-MDRD 29; Glucose 89 mg/dL (83-110); Sodium 142 mmol/L (136-145)
[2020-06-02] MEDS: hydrALAZINE 20 MG/ML VIAL SLOW IVP PRN (05:04)
--- NOTE | 2020-06-02 08:35 | ULT ---
BILATERAL CAROTID DUPLEX ULTRASOUND: HISTORY: Syncope TECHNIQUE: Grayscale, color-flow and spectral Doppler ultrasound imaging of the extracranial carotid artery syst ems and vertebral arteries was performed bilaterally. FINDINGS: No large amount of echogenic plaque is seen involving the common carotid or internal carotid arteries . The peak systolic velocity in the right ICA measures 62 cm/s. The peak systolic velocity in the righ t CCA measures 74 cm/s. The peak systolic velocity in the left ICA measures 75 cm/s. The peak systolic velocity in the lef t CCA measures 109 cm/s. The right IC/CC ration is0.83. The left IC/CC ratio is 0.69. Vertebral flow: antegrade, bilaterally. . IMPRESSION: No hemodynamically significant stenosis of either carotid artery
[2020-06-02] MEDS ORDERED: Meropenem 500 MG in Sodium Chloride 0.9% 100 ML IVPB SCH (09:00)
[2020-06-02] MEDS: cefTRIAXone\\ROCEPHIN 1 GM in Sodium Chloride 0.9% 100 ML IVPB SCH (15:56)
[2020-06-02] MEDS: Sodium Chloride 0.9% 1,000 ML IV SCH (15:58)
[2020-06-02 16:04] LABS: SARS-CoV-2 MS2 Positive; SARS-CoV-2 N Gene Negative; SARS-CoV-2 S Gene Negative; SARS-CoV-2 by NAA Not Detected (NotDetected); SARS-CoV-2 orf1ab Negative
[2020-06-02] MEDS ORDERED: Loperamide HCl 2 MG CAP PO PRN (16:10)
[2020-06-02] MEDS ORDERED: Nystatin Powder 15 GM BOT TOP PRN (16:10)
[2020-06-02] MEDS ORDERED: Acetaminophen 500 MG TAB PO PRN (16:10)
[2020-06-02] MEDS ORDERED: Bisacodyl 5 MG TAB PO PRN (16:10)
[2020-06-02] MEDS ORDERED: Diclofenac 1% 100 GM GEL TP PRN (16:10)
[2020-06-02] MEDS ORDERED: Milk Of Magnesia 30 ML UDCUP PO PRN (16:10)
[2020-06-02] MEDS ORDERED: Albuterol Sulfate 2.5 mg/3 ml Neb NEB PRN (16:10)
--- NOTE | 2020-06-02 16:49 | PDOC.HOSPP ---
- Subjective Encounter Date: 06/02/20 Encounter Time: 08:00 Subjective: no overnight events. this morning, feeling well and has no complaints. - Objective Vital Signs & Weight: Vital Signs (12 hours) Temp Pulse Pulse Resp BP BP BP 06/02/20 15:22 99.1 F 96 16 176/81 H 06/02/20 11:42 85 124/58 L 06/02/20 11:13 99.3 F 84 16 142/68 H 06/02/20 07:44 98.5 F 85 12 124/58 L 06/02/20 05:04 67 182/78 H Pulse Ox Pulse Ox 06/02/20 15:22 100 06/02/20 11:42 100 06/02/20 11:13 96 06/02/20 07:44 100 06/02/20 05:04 Weight Admit Weight 167 lb Weight 167 lb I&O: 06/01/20 06/02/20 06/03/20 06:59 06:59 06:59 Intake Total 120 Output Total 300 Balance -180 Result Diagrams: 06/02/20 03:38 06/02/20 03:38 Hospitalist ROS - Review of Systems Constitutional: denies: chills, sweats Respiratory: denies: cough, shortness of breath, pleuritic pain Cardiovascular: denies: chest pain, palpitations, orthopnea Gastrointestinal: denies: nausea, vomiting, abdominal pain, diarrhea Genitourinary: denies: dysuria, frequency, hematuria - Medication Medications: Active Medications Generic Name Dose Route Start Last Admin Trade Name Freq PRN Reason Stop Dose Admin Sodium Chloride 1,000 mls @ 50 mls/hr 06/01/20 19:45 06/02/20 15:58 Normal Saline 0.9% IV 1,000 mls .Q20H DEBORAH Administration Ceftriaxone Sodium 1 gm/ 100 mls @ 200 mls/hr 06/02/20 15:00 06/02/20 15:56 Sodium Chloride IVPB 100 mls 1500 DEBORAH Administration - Exam General Appearance: NAD, awake alert Neck: no JVD Heart: RRR, no murmur, no gallops, no rubs Respiratory: CTAB, no wheezes, no rales, no ronchi Gastrointestinal: soft, non-tender, non-distended, normal bowel sounds Psychiatric - other findings: alert but not oriented (baseline) Hosp A/P - Plan (1) Vasovagal Syncope Code(s): R55 - SYNCOPE AND COLLAPSE Status: Acute reportedly occurred during warm shower avoid trigger orthostatic vital signs (2) UTI (urinary tract infection) Status: Acute used ceftriaxone before; UCx growing E.coli changed on ceftriaxone pending susceptibilities (3) Acute kidney injury superimposed on CKD Code(s): N17.9 - ACUTE KIDNEY FAILURE, UNSPECIFIED; N18.9 - CHRONIC KIDNEY DISEASE, UNSPECIFIED Status: Acute Cr improving (4) Anxiety and depression Code(s): F41.8 - OTHER SPECIFIED ANXIETY DISORDERS Status: Chronic (5) Dementia Code(s): F03.90 - UNSPECIFIED DEMENTIA WITHOUT BEHAVIORAL DISTURBANCE Status: Chronic (6) Hypertension Code(s): I10 - ESSENTIAL (PRIMARY) HYPERTENSION Status: Chronic (7) Parkinson disease Code(s): G20 - PARKINSON'S DISEASE Status: Chronic UNKNOWN CODE STATUS/MPOA ELOS: 1 night
[2020-06-02] MEDS: Carbidopa/Levodopa CR 50-200 mg Tablet PO SCH (21:25)
[2020-06-02] MEDS: traZODone HCl 50 MG TAB PO SCH (21:25)
[2020-06-02] MEDS: Polyvinyl Alcohol 1.4%/Povidone 0.6% Opth Drops EA EYE SCH (23:08)
[2020-06-03 04:08] LABS: Anion Gap 12 mmol/L (10-20); BUN (Urea Nitrogen) 39 mg/dL (9.8-20.1); Calc. Creatinine Clearance 28 mL/min (70-130); Calcium 8.4 mg/dL (7.8-10.44); Carbon Dioxide 20 mmol/L (23-31); Chloride 115 mmol/L (98-107); Estimated GFR-MDRD 26; Glucose 94 mg/dL (83-110); Magnesium 1.6 mg/dL (1.6-2.6); Phosphorus 3.3 mg/dL (2.3-4.7); Potassium 3.8 mmol/L (3.5-5.1); Sodium 143 mmol/L (136-145)
[2020-06-03] MEDS: Aspirin 81 mg Enteric Coated Tablet PO SCH (08:41)
[2020-06-03] MEDS: Levothyroxine Sodium 25 MCG TAB PO SCH (08:41)
[2020-06-03] MEDS: Floranex Packet PO SCH (08:41)
[2020-06-03] MEDS: Multivit, Therapeutic 1 TAB PO SCH (08:42)
[2020-06-03] MEDS: Carbidopa/Levodopa CR 50-200 mg Tablet PO SCH ×2 (08:42→21:16)
[2020-06-03] MEDS: Ascorbic Acid 500 mg Chewable Tablet PO SCH (08:42)
[2020-06-03] MEDS: Cholecalciferol 1,000 UNITS (25 MCG) TAB PO SCH (08:43)
[2020-06-03] MEDS ORDERED: RIVASTIGMINE TD SCH (09:00)
[2020-06-03] MEDS: Polyvinyl Alcohol 1.4%/Povidone 0.6% Opth Drops EA EYE SCH ×2 (11:56→21:16)
[2020-06-03] MEDS: hydrALAZINE 20 MG/ML VIAL SLOW IVP PRN (11:57)
[2020-06-03] MEDS: Rivastigmine 4.6mg/24 Hour PATCH TD SCH (11:57)
[2020-06-03] MEDS ORDERED: Sodium Chloride 0.9% 1,000 ML IV SCH (12:30)
[2020-06-03] MEDS: cefTRIAXone\\ROCEPHIN 1 GM in Sodium Chloride 0.9% 100 ML IVPB SCH (14:59)
[2020-06-03] MEDS: Sodium Chloride 0.9% 1,000 ML IV SCH ×2 (15:01→21:16)
--- NOTE | 2020-06-03 18:56 | PDOC.HOSPP ---
- Subjective Encounter Date: 06/03/20 Encounter Time: 09:00 Subjective: no overnight events. This morning, drowsier but easily arousable. has no complaints. - Objective Vital Signs & Weight: Vital Signs (12 hours) Temp Pulse Resp BP BP BP BP 06/03/20 15:36 98.5 F 76 16 168/73 H 06/03/20 15:02 98.5 F 78 15 164/73 H 168/73 H 06/03/20 12:17 72 139/65 06/03/20 11:50 99.1 F 64 15 187/87 H 06/03/20 08:42 98.5 F 65 14 144/81 H 144/81 H 06/03/20 08:00 98.5 F 65 14 BP Pulse Ox 06/03/20 15:36 171/77 H 96 06/03/20 15:02 171/77 H 97 06/03/20 12:17 06/03/20 11:50 100 06/03/20 08:42 95 06/03/20 08:00 198/83 H 95 Weight Admit Weight 167 lb Weight 169 lb I&O: 06/02/20 06/03/20 06/04/20 06:59 06:59 06:59 Intake Total 120 1460 2080 Output Total 300 450 600 Balance -180 1010 1480 Result Diagrams: 06/02/20 03:38 06/03/20 03:17 Hospitalist ROS - Review of Systems Constitutional: denies: chills, sweats Eyes: denies: vision change Respiratory: denies: cough, shortness of breath, SOB with excertion Gastrointestinal: denies: nausea, vomiting, abdominal pain Neurological: denies: change in speech - Medication Medications: Active Medications Generic Name Dose Route Start Last Admin Trade Name Freq PRN Reason Stop Dose Admin Acidophilus 1 gm 06/03/20 09:00 06/03/20 08:41 Floranex PO 1 gm DAILY DEBORAH Administration Ascorbic Acid 500 mg 06/03/20 09:00 06/03/20 08:42 Vitamin C PO 500 mg DAILY DEBORAH Administration Aspirin 81 mg 06/03/20 09:00 06/03/20 08:41 Ecotrin PO 81 mg DAILY DEBORAH Administration Carbidopa/Levodopa 0.5 tab 06/02/20 21:00 06/03/20 08:42 Sinemet Cr 50/200 PO 0.5 tab BID DEBORAH Administration Cholecalciferol 1,000 units 06/03/20 09:00 06/03/20 08:43 Vitamin D3 PO 1,000 units DAILY DEBORAH Administration Hydralazine HCl 5 mg 06/02/20 16:12 06/03/20 11:57 Apresoline SLOW IVP 5 mg Q4H PRN Administration SBP GREATER THAN 160 Ceftriaxone Sodium 1 gm/ 100 mls @ 200 mls/hr 06/02/20 15:00 06/03/20 14:59 Sodium Chloride IVPB 100 mls 1500 DEBORAH Administration Levothyroxine Sodium 25 mcg 06/03/20 09:00 06/03/20 08:41 Synthroid PO 25 mcg DAILY DEBORAH Administration Memantine 5 mg 06/02/20 21:00 06/03/20 08:41 Namenda PO 5 mg BID DEBORAH Administration Multivitamins 1 tab 06/03/20 09:00 06/03/20 08:42 Theragran PO 1 tab DAILY DEBORAH Administration Polyvinyl Alcohol/Povidone 0 each 06/02/20 21:00 06/03/20 11:56 Refresh Classic Eye Drops EA EYE 1 each BID DEBORAH Administration Rivastigmine 13.8 mg 06/03/20 09:00 06/03/20 11:57 Exelon Patch TD 13.8 mg DAILY DEBORAH Administration Sertraline HCl 50 mg 06/03/20 09:00 06/03/20 08:42 Zoloft PO 50 mg DAILY DEBORAH Administration Trazodone HCl 25 mg 06/02/20 21:00 06/02/20 21:25 Desyrel PO 25 mg HS DEBORAH Administration - Exam General Appearance: NAD General - other findings: drowsy Eye: PERRL Heart: RRR, no murmur, no gallops, no rubs Respiratory: CTAB, no wheezes, no rales, no ronchi Gastrointestinal: soft, non-tender, non-distended, normal bowel sounds Psychiatric: negative: oriented to person, oriented to place, oriented to time Hosp A/P - Plan (1) Vasovagal Syncope orthostatic hypotension Code(s): R55 - SYNCOPE AND COLLAPSE Status: Acute reportedly occurred during warm shower ortho positive ECHO showing no significant valvulopathy NS bolus; recheck ortho avoid situational trigger (2) UTI (urinary tract infection) Status: Acute used ceftriaxone before; UCx growing E.coli nearly pansusceptible continue ceftriaxone for total of 5 days (3) Acute kidney injury superimposed on CKD Code(s): N17.9 - ACUTE KIDNEY FAILURE, UNSPECIFIED; N18.9 - CHRONIC KIDNEY DISEASE, UNSPECIFIED Status: Acute MELISSA worsening; gave bolus, increased maintenance IVF (4) Anxiety and depression Code(s): F41.8 - OTHER SPECIFIED ANXIETY DISORDERS Status: Chronic (5) Dementia Code(s): F03.90 - UNSPECIFIED DEMENTIA WITHOUT BEHAVIORAL DISTURBANCE Status: Chronic (6) Hypertension Code(s): I10 - ESSENTIAL (PRIMARY) HYPERTENSION Status: Chronic continue to monitor; need to balance HTN and orthostatic hypotension (7) Parkinson disease Code(s): G20 - PARKINSON'S DISEASE Status: Chronic DNAR per son ELOS: 1 night
[2020-06-03] MEDS: traZODone HCl 50 MG TAB PO SCH (21:18)
[2020-06-04] MEDS: hydrALAZINE 20 MG/ML VIAL SLOW IVP PRN ×2 (04:30→11:16)
[2020-06-04] MEDS: Aspirin 81 mg Enteric Coated Tablet PO SCH (07:58)
[2020-06-04] MEDS: Carbidopa/Levodopa CR 50-200 mg Tablet PO SCH ×2 (07:58→22:14)
[2020-06-04] MEDS: Multivit, Therapeutic 1 TAB PO SCH (07:59)
[2020-06-04] MEDS: Polyvinyl Alcohol 1.4%/Povidone 0.6% Opth Drops EA EYE SCH ×2 (07:59→22:16)
[2020-06-04] MEDS: Ascorbic Acid 500 mg Chewable Tablet PO SCH (07:59)
[2020-06-04] MEDS: Levothyroxine Sodium 25 MCG TAB PO SCH (07:59)
[2020-06-04] MEDS: Rivastigmine 4.6mg/24 Hour PATCH TD SCH (08:00)
[2020-06-04] MEDS: Floranex Packet PO SCH (08:00)
[2020-06-04] MEDS: Cholecalciferol 1,000 UNITS (25 MCG) TAB PO SCH (08:01)
[2020-06-04] MEDS: Sodium Chloride 0.9% 1,000 ML IV SCH (08:03)
[2020-06-04 09:34] LABS: Anion Gap 16 mmol/L (10-20); BUN (Urea Nitrogen) 35 mg/dL (9.8-20.1); Calc. Creatinine Clearance 32 mL/min (70-130); Calcium 8.4 mg/dL (7.8-10.44); Carbon Dioxide 14 mmol/L (23-31); Chloride 117 mmol/L (98-107); Estimated GFR-MDRD 29; Glucose 116 mg/dL (83-110); Magnesium 1.5 mg/dL (1.6-2.6); Potassium 4.2 mmol/L (3.5-5.1); Sodium 143 mmol/L (136-145)
[2020-06-04] MEDS ORDERED: Magnesium 2 GM/50 ML 2 GM in Premix Bag 1 BAG IVPB SCH (10:15)
[2020-06-04] MEDS ORDERED: Electrolyte Replacement Protocol FS PRN (10:15)
[2020-06-04] MEDS ORDERED: Electrolyte Replacement Protoc 1 EACH EACH FS SCH (10:15)
[2020-06-04] MEDS: cefTRIAXone\\ROCEPHIN 1 GM in Sodium Chloride 0.9% 100 ML IVPB SCH (15:09)
--- NOTE | 2020-06-04 18:58 | PDOC.HOSPP ---
- Subjective Encounter Date: 06/04/20 Encounter Time: 09:00 Subjective: no overnight events. this morning, more alert. Has no complaints. - Objective Vital Signs & Weight: Vital Signs (12 hours) Temp Pulse Pulse Pulse Resp BP BP 06/04/20 16:00 06/04/20 15:25 98.5 F 86 17 06/04/20 11:28 82 82 159/74 H 160/75 H 06/04/20 10:57 98.4 F 82 17 06/04/20 07:59 06/04/20 07:49 06/04/20 07:00 98.3 F 83 15 BP BP BP Pulse Ox 06/04/20 16:00 144/74 H 143/72 H 06/04/20 15:25 139/61 99 06/04/20 11:28 06/04/20 10:57 177/78 H 98 06/04/20 07:59 156/88 H 98 06/04/20 07:49 173/77 H 06/04/20 07:00 192/88 H 99 Weight Admit Weight 167 lb Weight 169 lb I&O: 06/03/20 06/04/20 06/05/20 06:59 06:59 06:59 Intake Total 1460 2080 1420 Output Total 450 1000 350 Balance 1010 1080 1070 Result Diagrams: 06/02/20 03:38 06/04/20 09:07 Hospitalist ROS - Review of Systems Constitutional: denies: chills, sweats Respiratory: denies: cough, shortness of breath, pleuritic pain Cardiovascular: denies: chest pain, palpitations Gastrointestinal: denies: abdominal pain, diarrhea - Medication Medications: Active Medications Generic Name Dose Route Start Last Admin Trade Name Freq PRN Reason Stop Dose Admin Acidophilus 1 gm 06/03/20 09:00 06/04/20 08:00 Floranex PO 1 gm DAILY DEBORAH Administration Ascorbic Acid 500 mg 06/03/20 09:00 06/04/20 07:59 Vitamin C PO 500 mg DAILY DEBORAH Administration Aspirin 81 mg 06/03/20 09:00 06/04/20 07:58 Ecotrin PO 81 mg DAILY DEBORAH Administration Carbidopa/Levodopa 0.5 tab 06/02/20 21:00 06/04/20 07:58 Sinemet Cr 50/200 PO 0.5 tab BID DEBORAH Administration Cholecalciferol 1,000 units 06/03/20 09:00 06/04/20 08:01 Vitamin D3 PO 1,000 units DAILY DEBORAH Administration Hydralazine HCl 5 mg 06/02/20 16:12 06/04/20 11:16 Apresoline SLOW IVP 5 mg Q4H PRN Administration SBP GREATER THAN 160 Ceftriaxone Sodium 1 gm/ 100 mls @ 200 mls/hr 06/02/20 15:00 06/04/20 15:09 Sodium Chloride IVPB 100 mls 1500 DEBORAH Administration Sodium Chloride 1,000 mls @ 70 mls/hr 06/03/20 19:15 06/04/20 08:03 Normal Saline 0.9% IV 1,000 mls .[id number] EDBORAH Administration Levothyroxine Sodium 25 mcg 06/03/20 09:00 06/04/20 07:59 Synthroid PO 25 mcg DAILY DEBORAH Administration Memantine 5 mg 06/02/20 21:00 06/04/20 07:59 Namenda PO 5 mg BID DEBORAH Administration Multivitamins 1 tab 06/03/20 09:00 06/04/20 07:59 Theragran PO 1 tab DAILY DEBORAH Administration Polyvinyl Alcohol/Povidone 0 each 06/02/20 21:00 06/04/20 07:59 Refresh Classic Eye Drops EA EYE 1 each BID DEBORAH Administration Rivastigmine 13.8 mg 06/03/20 09:00 06/04/20 08:00 Exelon Patch TD 13.8 mg DAILY DEBORAH Administration Sertraline HCl 50 mg 06/03/20 09:00 06/04/20 07:59 Zoloft PO 50 mg DAILY DEBORAH Administration Trazodone HCl 25 mg 06/02/20 21:00 06/03/20 21:18 Desyrel PO 25 mg HS DEBORAH Administration - Exam General Appearance: NAD, awake alert Neck: no JVD Heart: RRR, no murmur, no gallops, no rubs Respiratory: CTAB, no wheezes, no rales, no ronchi Gastrointestinal: soft, non-tender, non-distended, normal bowel sounds Psychiatric: not oriented (alert) Hosp A/P - Plan (1) Vasovagal Syncope orthostatic hypotension Code(s): R55 - SYNCOPE AND COLLAPSE Status: Acute reportedly occurred during warm shower orthostatic hypotension resolved after IVF avoid situational trigger (2) UTI (urinary tract infection) Status: Acute ceftriaxone; DC on 06/05 (3) Acute kidney injury superimposed on CKD (resolved) Code(s): N17.9 - ACUTE KIDNEY FAILURE, UNSPECIFIED; N18.9 - CHRONIC KIDNEY DISEASE, UNSPECIFIED Status: Acute continue IVF (4) Anxiety and depression Code(s): F41.8 - OTHER SPECIFIED ANXIETY DISORDERS Status: Chronic (5) Dementia Code(s): F03.90 - UNSPECIFIED DEMENTIA WITHOUT BEHAVIORAL DISTURBANCE Status: Chronic (6) Hypertension Code(s): I10 - ESSENTIAL (PRIMARY) HYPERTENSION Status: Chronic continue to monitor; need to balance HTN and orthostatic hypotension (7) Parkinson disease Code(s): G20 - PARKINSON'S DISEASE Status: Chronic DNAR per son ELOS: 1 night
[2020-06-04] MEDS: traZODone HCl 50 MG TAB PO SCH (22:15)
[2020-06-05] MEDS: Sodium Chloride 0.9% 1,000 ML IV SCH (01:40)
[2020-06-05 04:39] LABS: Anion Gap 14 mmol/L (10-20); BUN (Urea Nitrogen) 41 mg/dL (9.8-20.1); Calc. Creatinine Clearance 36 mL/min (70-130); Calcium 8.3 mg/dL (7.8-10.44); Carbon Dioxide 17 mmol/L (23-31); Chloride 115 mmol/L (98-107); Estimated GFR-MDRD 34; Glucose 89 mg/dL (83-110); Magnesium 2.1 mg/dL (1.6-2.6); Potassium 4.3 mmol/L (3.5-5.1); Sodium 142 mmol/L (136-145)
[2020-06-05] MEDS: hydrALAZINE 20 MG/ML VIAL SLOW IVP PRN (06:47)
[2020-06-05] MEDS: Ascorbic Acid 500 mg Chewable Tablet PO SCH (08:04)
[2020-06-05] MEDS: Cholecalciferol 1,000 UNITS (25 MCG) TAB PO SCH (08:04)
[2020-06-05] MEDS: Levothyroxine Sodium 25 MCG TAB PO SCH (08:04)
[2020-06-05] MEDS: Aspirin 81 mg Enteric Coated Tablet PO SCH (08:05)
[2020-06-05] MEDS: Floranex Packet PO SCH (08:05)
[2020-06-05] MEDS: Carbidopa/Levodopa CR 50-200 mg Tablet PO SCH (08:05)
[2020-06-05] MEDS: Multivit, Therapeutic 1 TAB PO SCH (08:05)
[2020-06-05] MEDS: Rivastigmine 4.6mg/24 Hour PATCH TD SCH (08:06)
[2020-06-05] MEDS: Polyvinyl Alcohol 1.4%/Povidone 0.6% Opth Drops EA EYE SCH (11:21)
[2020-06-05] MEDS ORDERED: Labetalol HCl 100 MG/20 ML VIAL SLOW IVP SCH (13:30)
[2020-06-05] MEDS: cefTRIAXone\\ROCEPHIN 1 GM in Sodium Chloride 0.9% 100 ML IVPB SCH (16:04)
[2020-06-05 16:59] VITALS: BP 128/56; TEMP 96
--- NOTE | 2020-06-06 14:46 | DIS ---
DATE OF ADMISSION: 06/03/2020 DATE OF DISCHARGE: 06/05/2020 HOSPITAL COURSE: Ms. Meredith is an 79-year-old female with medical history of Alzheimer disease, Parkinson disease, and CKD 3, who presented with a fall while showering. She was diagnosed with vasovagal syncope, orthostatic hypotension, and UTI. For vasovagal syncope, discharge instructions regarding avoiding stimuli were provided. For UTI, the patient's urine culture grew E coli and the patient completed treatment as inpatient. For orthostatic hypotension, the patient received IV fluids and orthostatic hypotension resolved. She was discharged back to group home hemodynamically stable with no complaints. PHYSICAL EXAMINATION: VITAL SIGNS: Blood pressure 162/58, pulse 88, respirations 18, oxygen saturation 100% on room air, and temperature 96.1. GENERAL: Lying comfortably in bed. Awake and alert. HEENT: Normocephalic, atraumatic. CARDIAC: Regular rate and rhythm. No murmurs, gallops, or rubs. LUNGS: Clear to auscultation bilaterally. No wheezing, rales, or rhonchi. GASTROINTESTINAL: Soft, nontender, and nondistended. Normal bowel sounds. PSYCHIATRIC: Alert, but not oriented. MEDICATION LIST: New medications: No new medications. Modified medications: No modified medications. Discontinued medications: No discontinued medications. Continued medications: 1. Acetaminophen. 2. Floranex. 3. Albuterol. 4. Artificial Tears. 5. Ascorbic acid. 6. Aspirin. 7. Bisacodyl p.r.n. 8. Carbidopa and levodopa. 9. Cholecalciferol. 10. Diclofenac. 11. Levothyroxine. 12. Loperamide p.r.n. 13. Magnesium hydroxide p.r.n. 14. Memantine. 15. Multivitamin. 16. . 17. Sertraline. 18. Trazodone. 19. Exelon. Job ID: [id number]
== END 2020-06-05 17:47 | DRG 683 ==
LOC: ERS 13:55 → 2NO 17:23 → OBSVTOIN 06-03 19:34
PROVIDERS: ADMIT Internal Medicine; ATTEND Internal Medicine
DX: N17.9 Acute kidney failure, unspecified (principal); N39.0 Urinary tract infection, site not specified; R47.01 Aphasia; I95.1 Orthostatic hypotension; Z66 Do not resuscitate; Z20.828 Contact with and (suspected) exposure to other viral communicable diseases; B96.20 Unspecified Escherichia coli [E. coli] as the cause of diseases classified elsewhere; G30.9 Alzheimer's disease, unspecified; F02.80 Dementia in other diseases classified elsewhere, unspecified severity, without behavioral disturbance, psychotic disturbance, mood disturbance, and anxiety; G20 Parkinson's disease; F32.9 Major depressive disorder, single episode, unspecified; N18.3 Chronic kidney disease, stage 3 (moderate); G47.00 Insomnia, unspecified; Z88.0 Allergy status to penicillin; Z79.82 Long term (current) use of aspirin; Z79.51 Long term (current) use of inhaled steroids; Z79.890 Hormone replacement therapy; Z79.899 Other long term (current) drug therapy
CPT/HCPCS: 36415; 51798; 80048; 81003; 81015; 83735; 84100; 85025; 87077; 87086; 87186; 87635; 93005; 93306; 93880; 96361; 96375; 96376; G0378; J0360; J0696; J1956; J2185; J3370; J3475; J3490; U0003